=== PATIENT | female | born 1950 | race Caucasian/White ===

== ENCOUNTER → 2018-08-30 | Outpatient (CLI) | payer OTHER ==
[~2018-08-30] MED LIST: AMIODARONE HCL200 MG PO; Apixaban PO; CARVEDILOL12.5 MG PO; COLACE100 M1 PO; COREG12.5 MG PO; Calcitonin,Salmon,Synthetic SC; DIOVAN160 MG PO; FUROSEMIDE40 MG PO; Guaifenesin/Dextromethorphan NG; KLOR-CON M2020 MEQ PO; LASIX40 MG PO; LIPITOR20 MG PO; LORATADINE10 MG PO; PROBIOTIC & AC1 EACH PO; SIMVASTATIN40 MG PO; SINGULAIR10 MG PO; TESSALON PERLE100 MG PO; VITAMIN D1000 UNI1 PO
--- NOTE | 2018-08-30 18:28 | Diagnostic Imaging Report ---
EXAMINATION: CHEST 2 VIEWS INDICATION: Bronchitis COMPARISON: 10/06/2016 FINDINGS: PA and lateral views TUBES and LINES: None. LUNGS: Limited study due to body habitus. Mild bibasilar haziness, likely subsegmental atelectasis. PLEURA: No significant pleural effusion or pneumothorax. HEART AND MEDIASTINUM: The cardiomediastinal silhouette is unremarkable. BONES AND SOFT TISSUES: Generalized demineralization limits evaluation. Exaggerated kyphosis of the thoracic spine. Multilevel advanced degenerative changes. Soft tissues are unremarkable. UPPER ABDOMEN: No free air under the diaphragm. IMPRESSION: Limited study as above. Mild bibasilar subsegmental atelectasis. Underlying/developing infiltrate in the bilateral lower lung quinn cannot be excluded. Signed by: Dr. Luciano Morales MD on 08/30/2018 6:24 PM
== END ==
LOC: RAD 16:20
PROVIDERS: ATTEND Family Medicine
DX: J40 Bronchitis, not specified as acute or chronic (principal)
CPT/HCPCS: 71046

== ENCOUNTER 2018-09-02 18:48 | Inpatient (IN) | payer OTHER, MEDICARE ==
[~2018-09-02] VITALS: Ht 162.6 cm; Wt 133.4 kg
[~2018-09-02 18:48] MED LIST changes: -AMIODARONE HCL200 MG PO; -Apixaban PO; -COLACE100 M1 PO; -COREG12.5 MG PO; -Calcitonin,Salmon,Synthetic SC; -FUROSEMIDE40 MG PO; -Guaifenesin/Dextromethorphan NG; -KLOR-CON M2020 MEQ PO; -LIPITOR20 MG PO; -LORATADINE10 MG PO; -SINGULAIR10 MG PO; -TESSALON PERLE100 MG PO
--- OUTSIDE RECORDS SUMMARY | 2018-09-02 18:51 | XMS REPORT ---
Author Author [facility] Address Unknown Phone Unavailable Care Team Providers Care Assembly Line Machine Operator Name Role Phone AIMEE ROTHMAN Unavailable Unavailable Problems This patient has no known problems. Allergies, Adverse Reactions, Alerts This patient has no known allergies or adverse reactions. Medications This patient has no known medications. Results Test Description Test Time Test Comments Text Results Atomic Results Result Comments CHEST 2 VIEWS 2018-08-30 18:22:00 [facility] [address] [address] Patient Name: ANITA RUSHING MR #: [id number] : 1950 Age/Sex: 68/F Req #: [id number] Adm Physician: Ordered by: AIMEE ROTHMAN MD Report #: [id number] Location: [facility] Room/Bed: Procedure: [id number] DX/CHEST 2 VIEWS Exam Date: Exam Time: REPORT STATUS: Signed EXAMINATION: CHEST 2 VIEWS INDICATION: Bronchitis COMPARIS ON: 10/06/2016 FINDINGS: PA and lateral views TUBES and LINES: None. LUNGS: Limited study due to body habitus. Mild bibasilar haziness, likely subsegmental atelectasis. PLEURA: No significant pleural effusion or pneumothorax. HEART AND MEDIASTINUM: The cardiomediastinal silhouette is unremarkable. BONES AND SOFT TISSUES: Generalized demineralization limits evaluation. Exaggerated kyphosis of the thoracic spine. Multilevel advanced degenerative changes. Soft tissues are unremarkable. UPPER ABDOMEN: No free air under the diaphragm. IMPRESSION: Limited study as above. Mild bibasilar subsegmental atelectasis. Underlying/developing infiltrate in the bilateral lower lung quinn cannot be excluded. Signed by: Dr. Luciano Reid MD on 08/30/2018 6:24 PM Dictated By: LUCIANO REID MD 23 Transcribed By: KELLY on 08/30/181823 COPY TO: AIMEE ROTHMAN MD
[2018-09-02 20:26] LABS: BASOPHILS # (AUTO) 0.1 (0.0-0.1); BASOPHILS % 0.3 % (0.0-1.0); EOSINOPHILS # (AUTO) 0.1 (0.0-0.4); EOSINOPHILS % 0.3 % (0.0-6.0); HEMATOCRIT 44.9 % (34.2-44.1); HEMOGLOBIN 14.7 g/dL (12.0-16.0); LYMPHOCYTES # (AUTO) 1.6 (1.0-3.2); LYMPHOCYTES % 8.6 % (18.0-39.1); MEAN CORPUSCULAR HEMOGLOBIN 28.2 pg (28-32); MEAN CORPUSCULAR HGB CONC 32.7 g/dL (31-35); MONOCYTES # (AUTO) 1.2 (0.2-0.8); MONOCYTES % 6.1 % (4.4-11.3); NEUTROPHILS # (AUTO) 15.8 (2.1-6.9); PLATELET COUNT 256 x10e3/uL (140-360); RED BLOOD COUNT 5.22 x10e6/uL (3.6-5.1); RED CELL DISTRIBUTION WIDTH 13.4 % (11.7-14.4)
[2018-09-02 20:30] LABS: INR 1.03; PARTIAL THROMBOPLASTIN TIME 25.4 seconds (23.8-35.5); PROTHROMBIN TIME 14.4 seconds (11.9-14.5)
[2018-09-02 20:38] LABS: ALANINE AMINOTRANSFERASE 8 IU/L (0-55); ALBUMIN 2.6 g/dL (3.5-5.0); ALBUMIN/GLOBULIN RATIO 0.6 (0.8-2.0); ALKALINE PHOSPHATASE 98 IU/L (40-150); ANION GAP 12.2 mmol/L (8-16); BLOOD UREA NITROGEN 17 mg/dL (7-26); BUN/CREATININE RATIO 19 (6-25); CALCIUM 12.1 mg/dL (8.4-10.2); CARBON DIOXIDE 31 mmol/L (22-29); CHLORIDE 98 mmol/L (98-107); CREATINE KINASE 15 IU/L (29-168); EST GLOMERULAR FILTRATION RATE > 60 ML/MIN (60-); GLUCOSE 166 mg/dL (74-118); MAGNESIUM 1.8 MG/DL (1.3-2.1); POTASSIUM 3.2 mmol/L (3.5-5.1); SODIUM 138 mmol/L (136-145)
[2018-09-02] MEDS ORDERED: IPRATROPIUM BROMIDE 0.02% 2.5 ML NEB NEB ONE (20:45)
[2018-09-02] MEDS ORDERED: LEVALBUTEROL HCL SOLN NEBU 1.25 MG/3 ML NEB INH ONE (20:45)
[2018-09-02] MEDS: CEFTRIAXONE SOD 1 GM VIAL IV SCH (20:57)
[2018-09-02] MEDS: AZITHROMYCIN 500MG/NS 250 ML 250 ML IV SCH (21:01)
--- NOTE | 2018-09-02 21:15 | Diagnostic Imaging Report ---
EXAM: CHEST SINGLE (PORTABLE), AP 1 view INDICATION: Cough, right lower lobe chest pain COMPARISON: None FINDINGS: LINES/TUBES: None LUNGS: New airspace opacity in the right lung base. Low inspiration with vascular congestion. PLEURA: No effusions or pneumothorax. HEART AND MEDIASTINUM: Stable appearance BONES AND SOFT TISSUES: No acute findings. IMPRESSION: New airspace opacity in the right lung base is consistent with pneumonia in the acute setting of cough. Signed by: Dr. Veronique Méndez M.D. on 09/02/2018 9:12 PM
[2018-09-02] MEDS ORDERED: NITROGLYCERIN 2% OINT 1 GM PKT TOP ONE (21:30)
[2018-09-02] MEDS ORDERED: POTASSIUM CHLORIDE 20 MEQ TAB CR PO ONE (21:45)
[2018-09-02 22:39] LABS: CLARITY,URINE SL CLOUDY (CLEAR); COLOR,URINE AMBER (YELLOW); LEUKOCYTE ESTERASE ,URINE TRACE (NEGATIVE); NITRITE,URINE NEGATIVE (NEGATIVE)
[2018-09-02 22:40] LABS: BILIRUBIN,URINE NEGATIVE (NEGATIVE); KETONES,URINE NEGATIVE (NEGATIVE); PROTEIN,URINE DIPSTICK 2+ (NEGATIVE); URINE UROBILINOGEN 1 mg/dL (0.2 - 1)
[2018-09-02 22:41] LABS: BACTERIA,URINE FEW /HPF; EPITHELIAL CELLS,URINE FEW /LPF
[2018-09-02] MEDS ORDERED: SODIUM CHLORIDE 0.9% 1000ML 1,000 ML IV ONE (22:45)
[2018-09-02] MEDS: ALBUTEROL SULF 0.083% NEB SOLN 3 ML NEB NEB SCH (23:00)
[2018-09-03] VITALS (31 sets, daily range): BP systolic 72–156; BP diastolic 64–114
--- NOTE | 2018-09-03 00:50 | NUR ---
MOVED PT OVER TO HOSPITAL BED AT THIS TIME. PT RESTING COMFORTABLY IN BED. HR SUDDENLY UP INTO 180'S. DR HARLEY NOTIFIED. EKG DONE. ABG DONE, PT GIVEN BREATHING TX AND PLACED ON BIPAP, PER DR MENDOZA ORDERS.
[2018-09-03] MEDS ORDERED: DILTIAZEM HCL VIAL 5 ML ONE ×2 (00:54→20:06)
[2018-09-03] MEDS: ALBUTEROL SULF 0.083% NEB SOLN 3 ML NEB NEB SCH ×6 (03:15→23:15)
[2018-09-03] MEDS: IPRATROPIUM BROMIDE 0.02% 2.5 ML NEB NEB SCH ×5 (03:15→23:15)
[2018-09-03] MEDS ORDERED: HYDRALAZINE HCL 20 MG/ML VIAL IV STA (03:17)
[2018-09-03 04:03] LABS: ABG HCO3 36 mmol/L (23-28); ABG PCO2 54 mmHg (41-51); ABG PH 7.43 (7.31-7.41); ABG PO2 70 mmHg (80-105)
[2018-09-03 04:30] LABS: BASOPHILS # (AUTO) 0.1 (0.0-0.1); BASOPHILS % 0.3 % (0.0-1.0); EOSINOPHILS % 0.1 % (0.0-6.0); HEMATOCRIT 44.3 % (34.2-44.1); HEMOGLOBIN 14.3 g/dL (12.0-16.0); LYMPHOCYTES # (AUTO) 1.7 (1.0-3.2); LYMPHOCYTES % 8.6 % (18.0-39.1); MEAN CORPUSCULAR HEMOGLOBIN 28.2 pg (28-32); MEAN CORPUSCULAR HGB CONC 32.3 g/dL (31-35); MEAN CORPUSCULAR VOLUME 87.4 fL (81-99); MONOCYTES # (AUTO) 1.3 (0.2-0.8); MONOCYTES % 6.4 % (4.4-11.3); NEUTROPHILS # (AUTO) 16.4 (2.1-6.9); NEUTROPHILS % 83.4 % (38.7-80.0); PLATELET COUNT 269 x10e3/uL (140-360); RED BLOOD COUNT 5.07 x10e6/uL (3.6-5.1); RED CELL DISTRIBUTION WIDTH 13.3 % (11.7-14.4)
[2018-09-03 04:49] LABS: ALANINE AMINOTRANSFERASE 8 IU/L (0-55); ALBUMIN 2.4 g/dL (3.5-5.0); ALBUMIN/GLOBULIN RATIO 0.6 (0.8-2.0); ALKALINE PHOSPHATASE 97 IU/L (40-150); ANION GAP 11.6 mmol/L (8-16); BLOOD UREA NITROGEN 17 mg/dL (7-26); BUN/CREATININE RATIO 20 (6-25); CALCIUM 12.3 mg/dL (8.4-10.2); CARBON DIOXIDE 32 mmol/L (22-29); CHLORIDE 101 mmol/L (98-107); CREATININE, SERUM 0.83 mg/dL (0.57-1.11); EST GLOMERULAR FILTRATION RATE > 60 ML/MIN (60-); GLUCOSE 141 mg/dL (74-118); POTASSIUM 3.6 mmol/L (3.5-5.1); SODIUM 141 mmol/L (136-145)
[2018-09-03 05:15] LABS: CREATINE KINASE MB 0.5 ng/mL (0-5.0)
[2018-09-03] MEDS: NITROGLYCERIN 2% OINT 1 GM PKT TOP SCH ×4 (05:16→18:00)
[2018-09-03 05:55] LABS: FREE THYROXINE INDEX 3.6983 (1.4-3.8); THYROID STIMULATING HORMONE 0.007 uIU/mL (0.350-4.940)
--- NOTE | 2018-09-03 06:44 | Diagnostic Imaging Report ---
EXAM: CHEST SINGLE (PORTABLE), AP 1 view INDICATION: Pneumonia COMPARISON: AP view of the chest September 02, 2018 FINDINGS: LINES/TUBES: None LUNGS: Increasing opacity in the right lung base. Persistent basilar congestion. PLEURA: Indeterminate for effusion on the right. HEART AND MEDIASTINUM: Possible deviation to the right versus rotation. Stable enlargement. BONES AND SOFT TISSUES: No acute findings. IMPRESSION: Increasing opacity in the right lung base. This could represent worsening pneumonia, collapse of the right lower lobe secondary to mucous plug, and/or developing effusion. Signed by: Dr. Veronique Méndez M.D. on 09/03/2018 6:41 AM
--- NOTE | 2018-09-03 06:55 | NUR ---
ASSUMED CARE AT THIS TIME. PATIENT AWAKE AND ALERT SITTING WITH BIPAP IN PLACE, TOLERATING WELL. RESP EVEN AND UNLABORED. SKIN WARM AND DRY. NO SIGNS OF ACUTE DISTRESS NOTED AT THIS TIME. INSTRUCTED TO NOTIFY NURSE FOR ANY NEEDS/CONCENRS, VERBALIZED UNDERSTANDING. EDUCATED PATIENT ON THE CURRENT PLAN OF CARE, VERBALIZED UNDERSTANDING.
[2018-09-03 07:42] LABS: CHOL/HDL RATIO 3.5 (3.0-3.6)
[2018-09-03] MEDS: VALSARTAN 160 MG TAB PO SCH (08:30)
[2018-09-03] MEDS: CARVEDILOL 12.5 MG TAB PO SCH ×2 (08:30→17:00)
[2018-09-03] MEDS: LORATADINE 10 MG TAB PO SCH (08:30)
[2018-09-03] MEDS: BENZONATATE 100 MG CAP PO SCH ×3 (08:30→21:00)
[2018-09-03] MEDS: CEFTRIAXONE SOD 1 GM VIAL IV SCH ×2 (08:31→21:38)
[2018-09-03] MEDS: AZITHROMYCIN 500MG/NS 250 ML 250 ML IV SCH (08:39)
--- NOTE | 2018-09-03 08:40 | NUR ---
PATIENT AWAKE AND ALERT SITTING IN BED WITH BIPAP, TOLERATING WELL. RESP EVEN AND UNLABORED. SKIN WARM AND DRY. NO SIGNS OF ACUTE DISTRESS NOTED AT THIS TIME. DENIES ANY C/O AT THIS TIME.
[2018-09-03] MEDS ORDERED: FUROSEMIDE 40 MG TAB PO SCH (09:00)
--- NOTE | 2018-09-03 09:15 | NUR ---
PATIENT LAYING IN BED WITH EYES CLOSED WITH BIPAP IN PLACE. RESP EVEN AND UNLABORED. SKIN WARM AND DRY. NO SIGNS OF ACUTE DISTRESS NOTED AT THIS TIME.
--- NOTE | 2018-09-03 09:40 | NUR ---
PATIENT STATES "IT FEELS LIKE THERE IS TOO MUCH AIR COMING IN", REQUESTING TO TAKE BIPAP OFF, NOTIFIED RESPIRATORY. RESPIRATORY AT BEDSIDE, PLACED ON N/C 4L TOLERATING WELL 96%. NO SIGNS OF RESP DISTRESS NOTED AT THIS TIME. INSTRUCTED PATIENT AND FAMILY TO NOTIFY NURSE FOR C/O SOB OR DIFFICULTY BREATHING, VERBALIZED UNDERSTANDING.
--- NOTE | 2018-09-03 10:59 | NUR ---
PATIENT AWAKE AND ALERT SITTING IN BED. BREATHING TREATMENT OF PROGRESS. RESP EVEN AND UNLABORED. SKIN WARM AND DRY. NO SIGNS OF ACUTE DISTRESS NOTED AT THIS TIME FAMILY AT BEDSIDE. DENIES ANY C/O AT THIS TIME.
--- NOTE | 2018-09-03 11:19 | NUR ---
PATIENT REPOSITIONED IN BED FOR COMFORT AND POSITIONED TO RIGHT LATERAL, TOLERATING WELL. NO SIGNS OF ACUTE DISTRESS NOTED AT THIS TIME.
[2018-09-03 11:49] LABS: CREATINE KINASE MB 0.3 ng/mL (0-5.0)
--- NOTE | 2018-09-03 12:02 | NUR ---
Ita goldbergleslie in EDM - 09/03/18 at 1323 by AMCCAGENE SPOKE WITH MADY KINGSLEY RN ON BEHALF OF DR QUINTERO, STATES DR QUINTERO IS CURRENTLY IN A CASE AND HE WILL NOTIFY DR QUINTERO OF CONSULTATION.
[2018-09-03] MEDS: GUAIFENESIN/DEXTROMETHORPHAN LIQD 5 ML UDC NG SCH ×2 (14:48→22:00)
--- NOTE | 2018-09-03 15:00 | NUR ---
Pt and spouse refuse turning and turning wedges
--- NOTE | 2018-09-03 17:10 | NUR ---
Pt and spouse demanded to use BR. Offered bedpan, pt and spouse refused. Offered BSC (could not locate bariatric BSC), pt initially agreed but refused when BSC was brought to BS. Explained to pt and spouse that she is SOB and hypoxic, that she is at high risk for fall, pt stated that she would not fall. Spouse pushed BSC out of way, got pt OOB with rolling walker, bed alarm sounded, unhooked pt from monitor and O2, took Holder catheter, and ambulated pt to BR, refused to keep door open a crack. RT brought extended O2 tubing, pt and spouse refused to allow staff in BR. Pt had difficulty getting back in bed, pt's spouse refused to allow pt to be flat for <5 seconds, stating that she could not be flat. Explained that pt could not be safely raised in bed without Glidesheet, even with multiple person assist, pt stated that she would allow it. Pt pulled up in bed, thanked staff, and stated that she approved of the glidesheet and being flat for a few seconds. RT Juan and KRISTOPHER Calvin witnessed noncompliance of spouse and pt, and that pt's spouse would seek staff in other patients' rooms.
[2018-09-03] MEDS ORDERED: DIGOXIN INJ 0.25 MG/ML 2 ML AMP IV ONE (17:30)
[2018-09-03] MEDS ORDERED: METOPROLOL TARTRATE INJ 1 MG/ML VIAL IV ONE (17:30)
[2018-09-03] MEDS ORDERED: METOPROLOL TARTRATE INJ 1 MG/ML VIAL ONE (17:36)
[2018-09-03] MEDS ORDERED: AMIODARONE HCL 150 MG/100 ML BAG IV ONE (17:45)
[2018-09-03] MEDS ORDERED: AMIODARONE HCL 900 MG in DEXTROSE 5% 500ML 500 ML IV ONE (17:45)
[2018-09-03] MEDS: METOPROLOL TARTRATE INJ 1 MG/ML VIAL IV PRN (19:20)
--- NOTE | 2018-09-03 19:48 | NUR ---
Spouse Blayne called, notified that pt's respiratory failure and atrial fibrillation necessitate ICU transfer and intubation. Spouse states that pt never had a problem before, explained that pneumonia is critical and that pt took cardiac medications. Spouse states that he approves of intubation if necessary, and that he will come to ICU.
[2018-09-03] MEDS ORDERED: AMIODARONE HCL 100 ML IV ONE (19:52)
--- NOTE | 2018-09-03 19:55 | NUR ---
Got Call back form in unit, Notified about ABG results. MD said after patient transfer in ICU give him call back.
[2018-09-03] MEDS ORDERED: DILTIAZEM HCL 5 MG/ML 5 ML VIAL IV STA ×2 (20:00→20:45)
[2018-09-03 20:09] LABS: ABG HCO3 35 mmol/L (23-28); ABG PCO2 53 mmHg (41-51); ABG PH 7.43 (7.31-7.41); ABG PO2 80 mmHg (80-105)
--- NOTE | 2018-09-03 20:35 | NUR ---
Report given to ICU nurse Patricia.
[2018-09-03] MEDS: SIMVASTATIN 40 MG TAB PO SCH (21:00)
[2018-09-03] MEDS: MONTELUKAST SODIUM 10 MG TAB PO SCH (21:00)
--- NOTE | 2018-09-03 21:05 | NUR ---
Patient transferred in ICU with help of KRISTOPHER Ardon and RT Terri at 2105 by bed with continued 60% BIPAP. HR:132,Spo2 99%, RR:12 and BP: 102/85 at this time.Family went with the patient.
--- NOTE | 2018-09-03 21:45 | History and Physical ---
PRIMARY CARE PHYSICIAN: Dr. Barreto. CHIEF COMPLAINT: Shortness of breath and leg swelling. HISTORY OF PRESENT ILLNESS: This is a 68-year-old woman with a history of congestive heart failure, now developing shortness of breath and leg swelling, brought in the emergency room where she was found to have respiratory distress, required BiPAP support in the emergency room. She is admitted for further evaluation and management. Patient unable to provide much history. PAST MEDICAL HISTORY: Congestive heart failure, hypertension, hyperlipidemia, and ambulatory dysfunction with the use of a walker. PAST SURGICAL HISTORY: Unknown. ALLERGIES: PER ELECTRONIC MEDICAL RECORD. FAMILY/SOCIAL HISTORY: Patient denies any alcohol, illicits, or cigarettes. She is .. MEDICATIONS: Per electronic medical record. REVIEW OF SYSTEMS: Unreliable. PHYSICAL EXAMINATION VITAL SIGNS: Reviewed. GENERAL: A tired-appearing woman, resting in bed. HEENT: Anicteric. She has BiPAP mask in place. CARDIOVASCULAR: Normal S1 and S2. LUNGS: She has reduced breath sounds throughout. ABDOMEN: Soft, nontender, and nondistended. EXTREMITIES: She has 1+ leg edema in bilateral lower extremities. SKIN: Dry. PSYCHIATRIC: Flat affect. NEUROLOGIC: Awake. LABS: Reviewed. MEDICATIONS: Reviewed. ASSESSMENT: A 68-year-old woman with; 1. Acute respiratory failure. 2. Severe sepsis. 3. Congestive heart failure, possibly diastolic. 4. Hypokalemia. 5. Hypercalcemia. 6. Urinary tract infection. 7. Right lung pneumonia. 8. Severe obesity, body mass index of 47.2. 9. Hypertension. 10. Hyperlipidemia. PLAN 1. Continue BiPAP support. 2. Antibiotic with azithromycin and ceftriaxone. 3. Antitussive medication Tessalon and guaifenesin DM. 4. Loratadine. 5. Continue on antihypertensive medications. 6. Obtain hemoglobin A1c and lipid panel and screen for diabetes. 7. Low TSH with elevated T4 but normal T3. Patient may have mild hyperparathyroidism. Does not appear to be on Synthroid, but that is unclear at this time. 8. We will use heparin for DVT prophylaxis and Pepcid for GI prophylaxis. DISPOSITION: Monitor closely. Job#: [id number] VAS
--- NOTE | 2018-09-03 21:56 | Diagnostic Imaging Report ---
EXAM: CHEST SINGLE (PORTABLE), AP 1 view INDICATION: Shortness of breath, rapid response COMPARISON: AP view the chest September 03, 2018 FINDINGS: LINES/TUBES: None LUNGS: Persistent opacity in the right lung base. New opacity in the left lung base. PLEURA: Suspected bilateral pleural effusions. HEART AND MEDIASTINUM: Stable enlargement of the cardiomediastinal silhouette. BONES AND SOFT TISSUES: No acute findings. IMPRESSION: Indeterminate bibasilar opacities, new on the left. This could be a combination of pneumonia, aspiration, atelectasis and/or pleural effusions. Signed by: Dr. Veronique Méndez M.D. on 09/03/2018 9:53 PM
[2018-09-04] VITALS (49 sets, daily range): BP systolic 95–179; BP diastolic 41–111
[2018-09-04] MEDS: NITROGLYCERIN 2% OINT 1 GM PKT TOP SCH ×5 (01:22→23:31)
--- NOTE | 2018-09-04 02:25 | Consultation ---
DATE OF CONSULTATION: September 03, 2018 CARDIOLOGY CONSULTATION REASON FOR CONSULTATION: Atrial fibrillation. HISTORY OF PRESENT ILLNESS: Ms. Hi is a 68-year-old lady who is a very-very poor historian. Denies any medical history; however, clearly visually she is not healthy. She comes in; according to chart review, has a history of hypertension, remote history of uterine cancer, hyperlipidemia, melanoma, super morbid obesity, obstructive sleep apnea, chronic Pickwickian obesity hypoventilation syndrome. She came in most recently on August 30, 2018 for bronchitis type symptoms and was initially managed as an outpatient. She came in on September 02 at night with progressively worsening dyspnea. She reports that she has been having a cough for the past 3 weeks, productive of yellowish-greenish sputum and progressively worsening dyspnea and to the point where she is dyspneic at rest. She denies any typical orthopnea; however, is at baseline unable to lay flat. [place] [id number] with a significant left shift and she has had subjective fevers and chills. Imaging revealed right lung base infiltrates concerning for lobar pneumonia. In the hospital, the patient suddenly went into AFib with RVR, heart rate in the 160s and at my visit she is currently in atrial fibrillation. The patient denies any subjective palpitations. Denies knowing any history of prior arrhythmias. PAST MEDICAL HISTORY: Per chart review; 1. Hypertension, essential. 2. Remote history of uterine cancer. 3. Hyperlipidemia. 4. History of melanoma. PAST SURGICAL HISTORY: According to chart review, she has , abdominal hernia and hysterectomy. FAMILY HISTORY: Mother and father both at 83 from heart disease. SOCIAL HISTORY: She is a lifelong nonsmoker. Denies any alcohol or illicit drug use. ALLERGIES: NO KNOWN DRUG ALLERGIES. HOME MEDICATIONS: She denies taking any; however, her ambulatory med list includes; 1. Coreg 25 mg 2 times a day. 2. Lasix 40 mg daily. 3. Zocor 40 mg daily. 4. Diovan 320 mg daily. 5. Vitamin D tablet daily. REVIEW OF SYSTEMS CONSTITUTIONAL: Positive for fever, chills, or malaise. Denies any weight changes. HEENT: Has nasal cough and stuffy nose. No sore throat. Has been having cough. RESPIRATORY: Positive for productive yellowish to greenish sputum and shortness of breath at rest with wheezing. Denies any pleuritic chest pain. CARDIOVASCULAR: Denies any subjective palpitations despite atrial fibrillation. No chest pain, pressure, or heaviness. Does not lay flat. Denies any PND. : Denies any dysuria or pyuria or changes in urinary frequency. MUSCULOSKELETAL: Positive for chronic back pain, knee pain, has quite difficulty ambulating at baseline due to habitus. NEUROLOGIC: Denies any focal weakness, numbness, tingling, seizures, headache, history of TIA or stroke. OTHER: The remainder of the review of systems is negative, otherwise mentioned. PHYSICAL EXAMINATION VITALS: Height of 64 inches, weight of 275 pounds. BMI is 47.2. Temperature, T-max of 100.3, currently 98.0; pulse of 168, respiratory rate of 30 on BiPAP machine, blood pressure 114/95, and O2 sat 98% on BiPAP which was previously 88% on nasal cannula. GENERAL: This is a super morbidly obese lady who is in [id number] respiratory distress. HEENT: Extraocular movements are intact. Pupils are equal, round and reactive to light. Oropharynx is covered with BiPAP mask. NECK: No elevation of jugular venous pulsation. Obese neck. Limited exam due to habitus. No carotid bruits. CARDIOVASCULAR: Irregularly irregular rate and rhythm. Normal S1 and S2, 1/6 murmur at the left lower sternal border. LUNGS: Show coarse rhonchi, coarse breath sounds throughout lung quinn, crackles at the right base. Poor airflow throughout lung quinn. ABDOMEN: Soft, morbidly obese with large pannus. Unable to assess for hepatosplenomegaly. BACK: No costovertebral angle tenderness. EXTREMITIES: Warm with chronic venous stasis changes and 1 to 2+ edema. NEUROLOGIC: Cranial nerves II through XII are intact and she moves all 4 extremities, limited cooperation for remainder of exam. LABS: White count 19.6, hemoglobin 14.3, hematocrit 44.3, platelets of 269. Sodium is 141, potassium 3.6, chloride 101, bicarb 32, BUN 17, creatinine 0.83, glucose of 141, A1c was 5.1%. Lactate level on admission was 10.3, calcium of 12.3, AST 11, ALT 8, alk phos of 97, total protein of 6.4, albumen of 2.4, BNP is 149. TSH is 0.007. INR is 1.03. UA shows No white cells. ABG shows pH of 7.43, pCO2 of 54, and pO2 of 70. Chest x-ray revealed right lung base opacity concerning for pneumonia. EKG reveals atrial fibrillation, left ventricular response, and diffuse subendocardial ischemia due to RVR. DIAGNOSES 1. Acute hypoxic and hypercapnic respiratory failure, currently on salvage BiPAP therapy. 2. Severe lobar pneumonia. 3. Atrial fibrillation with rapid ventricular response in the setting of respiratory distress and likely high likelihood for atrial arrhythmias in light of her comorbidities. 4. Super morbid obesity, on CPAP at night. 5. Hypertension, essential. 6. Hypercholesterolemia. 7. Medical regimen suggestive of perhaps diastolic heart failure, but does not seem to be in decompensated heart failure at this time. PLAN/RECOMMENDATIONS 1. From a cardiovascular standpoint, we will go ahead and start her on amiodarone drip as she has already received digoxin and IV beta-ted therapy. 2. In light of her respiratory status, discussion with nursing, the patient is not safe or cooperative enough to take p.o. medications at the present time. 3. We will give IV metoprolol p.r.n. q.2 hours as an additional supplement. 4. IV antibiotics per primary team. 5. Close telemetry monitoring. 6. We will continue to monitor this patient while she is here. Job#: [id number] GAU MTDD
--- NOTE | 2018-09-04 03:00 | NUR ---
Amiodarone setting changed to .5mg(16.7ml/per hour) per protocol
[2018-09-04] MEDS: ALBUTEROL SULF 0.083% NEB SOLN 3 ML NEB NEB SCH ×6 (03:05→23:05)
--- NOTE | 2018-09-04 03:32 | Consultation ---
DATE OF CONSULTATION: September 03, 2018 CLINICAL UPDATE NOTE Patient had a rapid call due to worsening respiratory distress and elevation in heart rates with AFib, RVR going up to 170s. Overall, we went ahead and ordered a stat ABG and gave her further amiodarone bolus as well as Cardizem IV. She seemed to have settled down. When I had notified the changes to Dr. Kimbrough in regards to stat ABG, which showed pH 7.43, pCO2 in the 50s, and pO2 in the 80s, we made arrangements to move her to the ICU for closer observation and monitoring with low threshold for intubation. Her blood pressure has subsequently improved and at one point it was as low as 80s over 60s, but now is up to 90s over 79 and currently breathing at 20 times a minute with heart rate in the 110s range. Total time spent with the patient including re-assessment so forth now is total over 90 minutes. We will continue attempted rhythm strategy with amiodarone and we will need to supplement with p.r.n. rate-control medications intravenously as she is currently capable of swallowing. We also needed to have a close respiratory monitoring and is currently on salvage BiPAP therapy and may need intubation if neuro status deteriorates or ABGs worsen. Patient might be in critical condition with high likelihood of respiratory failure due to her underlying pneumonia and clinical condition. Job#: [id number] RICCO
[2018-09-04 04:57] LABS: BASOPHILS # (AUTO) 0.1 (0.0-0.1); BASOPHILS % 0.3 % (0.0-1.0); EOSINOPHILS # (AUTO) 0.1 (0.0-0.4); EOSINOPHILS % 0.4 % (0.0-6.0); HEMATOCRIT 37.8 % (34.2-44.1); LYMPHOCYTES # (AUTO) 1.3 (1.0-3.2); LYMPHOCYTES % 7.6 % (18.0-39.1); MEAN CORPUSCULAR HEMOGLOBIN 28.3 pg (28-32); MEAN CORPUSCULAR HGB CONC 31.7 g/dL (31-35); MEAN CORPUSCULAR VOLUME 89.2 fL (81-99); MONOCYTES # (AUTO) 1.1 (0.2-0.8); MONOCYTES % 6.3 % (4.4-11.3); NEUTROPHILS # (AUTO) 14.7 (2.1-6.9); NEUTROPHILS % 84.5 % (38.7-80.0); PLATELET COUNT 289 x10e3/uL (140-360); RED BLOOD COUNT 4.24 x10e6/uL (3.6-5.1); RED CELL DISTRIBUTION WIDTH 13.3 % (11.7-14.4)
[2018-09-04 05:25] LABS: ALANINE AMINOTRANSFERASE 7 IU/L (0-55); ALBUMIN 1.9 g/dL (3.5-5.0); ALBUMIN/GLOBULIN RATIO 0.5 (0.8-2.0); ALKALINE PHOSPHATASE 93 IU/L (40-150); ANION GAP 10.3 mmol/L (8-16); BLOOD UREA NITROGEN 23 mg/dL (7-26); BUN/CREATININE RATIO 26 (6-25); CALCIUM 12.2 mg/dL (8.4-10.2); CARBON DIOXIDE 34 mmol/L (22-29); CHLORIDE 101 mmol/L (98-107); CHOLESTEROL 115 MD/DL (0-199); EST GLOMERULAR FILTRATION RATE > 60 ML/MIN (60-); GLUCOSE 116 mg/dL (74-118); MAGNESIUM 1.9 MG/DL (1.3-2.1); POTASSIUM 3.3 mmol/L (3.5-5.1); SODIUM 142 mmol/L (136-145)
[2018-09-04] MEDS: GUAIFENESIN/DEXTROMETHORPHAN LIQD 5 ML UDC NG SCH ×3 (05:58→20:33)
[2018-09-04 06:17] LABS: CHOL/HDL RATIO 3.7 (3.0-3.6); HDL CHOLESTEROL 30 MG/DL (40-60); LDL CHOLESTEROL 69 MG/DL (60-130); TRIGLYCERIDES 64 MG/DL (0-149)
[2018-09-04 06:36] LABS: INR 0.99
[2018-09-04 06:43] LABS: THYROID STIMULATING HORMONE 0.005 uIU/mL (0.350-4.940)
[2018-09-04] MEDS: IPRATROPIUM BROMIDE 0.02% 2.5 ML NEB NEB SCH ×3 (07:35→19:10)
[2018-09-04] MEDS: CEFTRIAXONE SOD 1 GM VIAL IV SCH (08:00)
[2018-09-04] MEDS: VALSARTAN 160 MG TAB PO SCH (09:00)
[2018-09-04] MEDS: BENZONATATE 100 MG CAP PO SCH ×3 (09:00→20:41)
[2018-09-04] MEDS: CARVEDILOL 12.5 MG TAB PO SCH ×2 (09:00→17:00)
[2018-09-04] MEDS: AZITHROMYCIN 500MG/NS 250 ML 250 ML IV SCH (09:00)
[2018-09-04] MEDS: LORATADINE 10 MG TAB PO SCH (09:00)
[2018-09-04] MEDS ORDERED: SODIUM CHLORIDE 0.9% 250ML 250 ML ONE (10:43)
[2018-09-04] MEDS ORDERED: POTASSIUM CHLORIDE 20 MEQ TAB CR PO NR ×2 (11:45→18:00)
--- NOTE | 2018-09-04 12:51 | Consultation ---
DATE OF CONSULTATION: September 04, 2018 PULMONARY CRITICAL CARE CONSULTATION REASON FOR CONSULTATION: Shortness of breath and respiratory failure. HPI: Ms. Hi is a 68-year-old female. She presented into the emergency room with increasing cough and shortness of breath. Patient was admitted under Dr. Sorenson' service for this problem. She was on BiPAP in the emergency room and was transferred to [facility]. After she was transferred [facility], she continued on BiPAP. She became increasingly short of breath and tachypneic. Blood gas was done, which showed ABG, pH of 7.43, pCO2 of 53, pO2 of 80. Patient was transferred to ICU and she did well. She was in atrial fibrillation with rapid ventricular response. Amiodarone was given and she converted back to normal. She is currently complaining of cough and shortness of breath, but much better than last night. Her chest x-ray showing right-sided new right lower lobe infiltrate and increased hilar congestion as well. She has atelectasis on the chest x-ray as well. REVIEW OF SYSTEMS GENERAL: Denies any fever or chills. HEAD: Denies any head trauma. ENT: Denies any earache. CVS: Denies any chest pain. RESPIRATORY: Shortness of breath. GI: Denies any nausea or vomiting. MUSCULOSKELETAL: Denies any arthralgias or myalgias. NEUROLOGIC: Denies any focal weakness. The rest of the review systems are negative except as in HPI. PAST MEDICAL HISTORY: Hypertension, obesity, history of heart failure possibly diastolic. PAST SURGICAL HISTORY: Not known. FAMILY AND SOCIAL HISTORY: She does not smoke, does not drink, lives with her . She is . PHYSICAL EXAMINATION VITALS: Temperature 98.3, pulse of 86, blood pressure 159/78, respiratory rate of 20, O2 sat 97% on 3 liters. HEENT: Head is atraumatic normocephalic. NECK: Supple. CHEST: Crackles bilaterally. HEART: S1, S2 audible. No murmurs, gallops, or rub. ABDOMEN: Soft, nontender. EXTREMITIES: Bilateral peal edema. NEUROLOGIC: She is awake and alert, following commands. Responding to questions appropriately. LABS: Chemistry; sodium 142, potassium 3.3, BUN 23, creatinine 0.9. White count of 17,000. Blood gas reviewed. CHEST X-RAY: I have reviewed all the images. Patient had a chest x-ray in the a.m. of , which was completely normal with no infiltrate. The x-ray on the is showing dense right lower lobe bibasilar infiltrates, possible atelectasis and congestion as well. ASSESSMENT/PLAN: Ms. Hi is a 68-year-old female. She presented with worsening shortness of breath, cough, and her phlegm is darkish green colored, which she has been coughing up in front of me. CURRENT PROBLEMS 1. Pneumonia. On the , the patient and no infiltrate. Leukocytosis is not reduced. I will change the antibiotic to IV Zosyn along with the azithromycin and discontinue Rocephin for broader coverage. 2. High likelihood of diastolic heart failure. Patient's echo reading is pending. Increasing congestion and chest x-ray is also suggestive of fluid overload. Patient is on Lasix 40 mg p.o. I will change it to IV daily and follow the BMP closely. 3. High likelihood of obstructive sleep apnea. Patient reports that she had a sleep study and she was told that she does not have sleep apnea. I am unsure when this study was done; however, we will use the BiPAP as needed in hours of sleep and she will need outpatient followup for sleep study. 4. In 2009, patient was seen with Dr. Mahajan here in the hospital and his note suggest that patient probably has history of asthma as well. Continue the patient on nebulizer treatment as ordered. Hold off on the steroids for now. 5. I will send off sputum cultures for Gram-stain and culture. 6. Acute hypoxic respiratory failure. Mild hypercapnia on ABG. We will continue the patient on oxygen as needed. 7. Morbid obesity. Critical care time spent 50 minutes. Thank you for this consult. Job#: [id number] YODIT
[2018-09-04] MEDS: PIPER-TAZ 3.375 GM 50 ML IV SCH ×2 (14:00→20:42)
--- NOTE | 2018-09-04 14:06 | NUR ---
IM- Progress Note O/N: A.fib with RVR; REVIEW OF SYSTEMS: Unreliable. PHYSICAL EXAMINATION VITAL SIGNS: Reviewed. GENERAL: A tired-appearing woman, resting in bed. HEENT: Anicteric. She has BiPAP mask in place. CARDIOVASCULAR: Normal S1 and S2. LUNGS: She has reduced breath sounds throughout. ABDOMEN: Soft, nontender, and nondistended. EXTREMITIES: She has 1+ leg edema in bilateral lower extremities. SKIN: Dry. PSYCHIATRIC: Flat affect. NEUROLOGIC: Awake. LABS: Reviewed. MEDICATIONS: Reviewed. ASSESSMENT: A 68-year-old woman with; 1. Acute respiratory failure. 2. Severe sepsis. 3. Congestive heart failure, possibly diastolic. 4. Hypokalemia. 5. Hypercalcemia. 6. Urinary tract infection. 7. Right lung pneumonia. 8. Severe obesity, body mass index of 47.2. 9. Hypertension. 10. Hyperlipidemia. PLAN 1. Continue BiPAP support. 2. Antibiotic with azithromycin and ceftriaxone. 3. Antitussive medication Tessalon and guaifenesin DM. 4. Loratadine. 5. Continue on antihypertensive medications. 6. Obtain hemoglobin A1c and lipid panel and screen for diabetes. 7. Low TSH with elevated T4 but normal T3. Patient may have mild hyperparathyroidism. Does not appear to be on Synthroid, but that is unclear at this time. 8. We will use heparin for DVT prophylaxis and Pepcid for GI prophylaxis. DISPOSITION: Monitor closely. 09/04 A.fib with RVR overnight; Possibly sleep apnea; HypoKalemia- repalce; Hypercalcemia- check intact PTH. Move to IMCU. cct>35mins. Salazar Sorenson MD, PhD.
--- NOTE | 2018-09-04 17:02 | Diagnostic Imaging Report ---
EXAMINATION: CHEST XRAY LINE PLACEMENT INDICATION: ^CK PICC LINE PLACEMENT COMPARISON: 10/24/2016 FINDINGS: AP view TUBES and LINES: Left PICC line in place with tip overlying SVC. LUNGS: Limited by body habitus. Bilateral lower lobe hazy opacities, right greater than left. PLEURA: No pneumothorax. HEART AND MEDIASTINUM: The cardiomediastinal silhouette is enlarged on this AP view. BONES AND SOFT TISSUES: No acute osseous lesion. Soft tissues are unremarkable. UPPER ABDOMEN: No free air under the diaphragm. IMPRESSION: Limited as above. Left PICC line in place with tip overlying SVC. No visible pneumothorax. Bilateral lower lobe hazy opacities, representing atelectasis, small effusions, or pneumonia. Signed by: Dr. Luciano Morales MD on 09/04/2018 4:58 PM
[2018-09-04] MEDS: SIMVASTATIN 40 MG TAB PO SCH (20:33)
[2018-09-04] MEDS: MONTELUKAST SODIUM 10 MG TAB PO SCH (20:41)
[2018-09-05] VITALS (7 sets, daily range): BP systolic 90–141; BP diastolic 51–90
[2018-09-05] MEDS: ALBUTEROL SULF 0.083% NEB SOLN 3 ML NEB NEB SCH ×5 (02:05→19:45)
[2018-09-05] MEDS: IPRATROPIUM BROMIDE 0.02% 2.5 ML NEB NEB SCH ×4 (02:05→19:45)
[2018-09-05] MEDS: PIPER-TAZ 3.375 GM 50 ML IV SCH ×3 (05:49→21:00)
[2018-09-05] MEDS: NITROGLYCERIN 2% OINT 1 GM PKT TOP SCH ×4 (05:50→23:45)
[2018-09-05] MEDS: GUAIFENESIN/DEXTROMETHORPHAN LIQD 5 ML UDC NG SCH ×3 (05:50→21:00)
--- NOTE | 2018-09-05 07:15 | NUR ---
Patient received awake, alert and Ox3 and sitting in chair at bedside and tolerating well. Respirations are even and unlabored. Denies any pain or discomfort.
--- NOTE | 2018-09-05 07:30 | NUR ---
Patient assisted to bathroom with her own personal walker and tolerated well.
--- NOTE | 2018-09-05 08:00 | NUR ---
Patient had very small brown colored formed stool. She required more assistance upon standing and used her walker to ambulate without any difficulty.
[2018-09-05] MEDS: FUROSEMIDE INJ 10 MG/ML 4 ML VIAL IV SCH (09:00)
[2018-09-05] MEDS: AZITHROMYCIN 500MG/NS 250 ML 250 ML IV SCH (09:00)
[2018-09-05] MEDS: BENZONATATE 100 MG CAP PO SCH ×3 (09:00→20:35)
[2018-09-05] MEDS: VALSARTAN 160 MG TAB PO SCH (09:00)
[2018-09-05] MEDS: LORATADINE 10 MG TAB PO SCH (09:00)
[2018-09-05] MEDS: CARVEDILOL 12.5 MG TAB PO SCH ×2 (09:00→17:12)
--- NOTE | 2018-09-05 09:30 | NUR ---
at bedside. He was informed that patient will possibly be moving today to IMCU.
[2018-09-05 10:16] LABS: BASOPHILS # (AUTO) 0.1 (0.0-0.1); BASOPHILS % 0.3 % (0.0-1.0); EOSINOPHILS # (AUTO) 0.2 (0.0-0.4); EOSINOPHILS % 1.2 % (0.0-6.0); HEMATOCRIT 36.7 % (34.2-44.1); HEMOGLOBIN 11.9 g/dL (12.0-16.0); LYMPHOCYTES # (AUTO) 1.3 (1.0-3.2); LYMPHOCYTES % 8.7 % (18.0-39.1); MEAN CORPUSCULAR HEMOGLOBIN 28.7 pg (28-32); MEAN CORPUSCULAR HGB CONC 32.4 g/dL (31-35); MEAN CORPUSCULAR VOLUME 88.6 fL (81-99); MONOCYTES # (AUTO) 1.4 (0.2-0.8); MONOCYTES % 9.2 % (4.4-11.3); NEUTROPHILS % 79.3 % (38.7-80.0); PLATELET COUNT 287 x10e3/uL (140-360); RED BLOOD COUNT 4.14 x10e6/uL (3.6-5.1); RED CELL DISTRIBUTION WIDTH 13.1 % (11.7-14.4)
[2018-09-05 10:22] LABS: ANION GAP 9.4 mmol/L (8-16); CALCIUM 12.3 mg/dL (8.4-10.2); CREATININE, SERUM 1.01 mg/dL (0.57-1.11); POTASSIUM 3.4 mmol/L (3.5-5.1)
--- NOTE | 2018-09-05 10:30 | NUR ---
Dr. Langley here to see patient
--- NOTE | 2018-09-05 11:00 | NUR ---
Dr. Mahajan here to see patient.
[2018-09-05] MEDS: POTASSIUM CHLORIDE 20 MEQ TAB CR PO SCH ×2 (11:26→17:13)
[2018-09-05] MEDS: AMIODARONE HCL 200 MG TAB PO SCH ×2 (11:26→17:12)
[2018-09-05] MEDS ORDERED: MAGNESIUM HYDROXIDE 30 ML UDC PO PRN (11:30)
--- NOTE | 2018-09-05 12:03 | Diagnostic Imaging Report ---
EXAMINATION: CHEST SINGLE (PORTABLE) INDICATION: Hypoxia. Hypokalemia. COMPARISON: 09/03/2018. FINDINGS: AP view TUBES and LINES: Left PICC line in place with tip not well-visualized, apparently at the left brachiocephalic vein/SVC junction.. LUNGS: Prominence of the pulmonary vasculature with redistribution bilaterally, congestion. Possible bibasilar subsegmental atelectasis. Consolidation in the lower right lower lobe not excluded. PLEURA: Bilateral pleural effusions, right larger than left. No pneumothorax. HEART AND MEDIASTINUM: The cardiac silhouette is partially visualized, however, enlarged. BONES AND SOFT TISSUES: No acute osseous lesion. Soft tissues are unremarkable. UPPER ABDOMEN: No free air under the diaphragm. IMPRESSION: 1. Bilateral pulmonary venous congestion. 2. Bilateral pleural effusions, right greater than left. Bibasilar subsegmental atelectasis. Signed by: Dr. Jaon Christianson M.D. on 09/05/2018 12:00 PM
--- NOTE | 2018-09-05 12:30 | NUR ---
Report called to Harriet Jasso RN and patient will be moving to [facility]-Room# 188.
--- NOTE | 2018-09-05 12:55 | NUR ---
Patient transferred to [facility]-[id number] via her own bed and hooked up to monitor. Denies any pain or discomfort. Respirations are even and unlabored and on O2 at 2 liters per nasal cannula and tolerating well. Bipap machine at bedside. Personal walker at bedside. Bed Alarm on. Call chi in patient's hand.
--- NOTE | 2018-09-05 13:20 | NUR ---
Spouse called at this time to inform of new room assignment to [facility] 188.
[2018-09-05] MEDS ORDERED: SODIUM CHLORIDE 0.9% 250ML 250 ML ONE (13:46)
--- NOTE | 2018-09-05 14:38 | NUR ---
Caught patient attempting to exit bed; with help of son, pt put back to bed. This patient is a minimum of 3 person assist. Bed alarm on.
[2018-09-05] MEDS: DOCUSATE SODIUM 100 MG CAP PO SCH (17:12)
[2018-09-05] MEDS: MONTELUKAST SODIUM 10 MG TAB PO SCH (20:35)
[2018-09-05] MEDS: SIMVASTATIN 40 MG TAB PO SCH (20:35)
[2018-09-06] VITALS (8 sets, daily range): BP systolic 102–157; BP diastolic 56–93
[2018-09-06] MEDS: IPRATROPIUM BROMIDE 0.02% 2.5 ML NEB NEB SCH ×4 (00:30→19:45)
[2018-09-06] MEDS: ALBUTEROL SULF 0.083% NEB SOLN 3 ML NEB NEB SCH ×6 (00:30→19:45)
[2018-09-06] MEDS: GUAIFENESIN/DEXTROMETHORPHAN LIQD 5 ML UDC NG SCH ×3 (05:50→22:57)
[2018-09-06] MEDS: PIPER-TAZ 3.375 GM 50 ML IV SCH ×3 (05:50→22:35)
[2018-09-06] MEDS: NITROGLYCERIN 2% OINT 1 GM PKT TOP SCH ×4 (05:50→23:44)
[2018-09-06] MEDS: CARVEDILOL 12.5 MG TAB PO SCH ×2 (10:10→18:14)
[2018-09-06] MEDS: VALSARTAN 160 MG TAB PO SCH (10:10)
[2018-09-06] MEDS: FUROSEMIDE INJ 10 MG/ML 4 ML VIAL IV SCH (10:13)
[2018-09-06] MEDS: AZITHROMYCIN 500MG/NS 250 ML 250 ML IV SCH (10:13)
[2018-09-06] MEDS: BENZONATATE 100 MG CAP PO SCH ×3 (10:13→20:27)
[2018-09-06] MEDS: AMIODARONE HCL 200 MG TAB PO SCH ×2 (10:13→18:14)
[2018-09-06] MEDS: DOCUSATE SODIUM 100 MG CAP PO SCH ×2 (10:13→17:00)
[2018-09-06] MEDS: LORATADINE 10 MG TAB PO SCH (10:13)
--- NOTE | 2018-09-06 11:26 | NUR ---
THIS 68 YO FEMALE AAOX3 ADMITTED FOR HYPOKALEMIA, HYPOXIA & PNEMONIA HAS WHAT APPEARS TO BE A NEWLY HEALED ABRASION TO DISTAL MONS PUBIS. SHE IS MORBIDLY OBESE WITH A LARGE ABDOMINAL AREA INCLUDING MONS PUBIS WHICH IS SEEN TO TOUCH THE SURFACE OF BED & CHAIR WHEN SITTING. EDUCATED PATIENT ON KEEPING ABDOMINAL FOLDS DRY & CLEAN TO PREVENT SKIN BREAKDOWN & ATTEMPTING TO NOT SHEAR NEWLY HEALED AREA ACROSS SURFACE, NEEDING TO LIFT INSTEAD OF SLIDING. PATIENT VERBALIZED UNDERSTANDING. LABS: WBC 15.8 ALB 1.9 RECOMMENDATION: ALLEVYN FOAM TO NEWLY HEALED AREA OF MONS PUBIS, OKAY TO CHANGE WEEKLY KEEP PERINEUM CLEAN AND DRY DAILY HEEL PROTECTORS WHILE IN BED CONTINUE WITH ALTERNATING LOW AIR LOSS MATTRESS TURN EVERY 2 HOURS WHILE IN BED THANK YOU FOR THIS CONSULTATION. Addendum: 09/06/18 at 1135 by Eva Reid RN Amended: Links added.
[2018-09-06 15:21] LABS: CALCIUM 12.6 mg/dL (8.4-10.2); CREATININE, SERUM 1.04 mg/dL (0.57-1.11)
--- NOTE | 2018-09-06 15:47 | NUR ---
Nutrition Screen Note RD Recommendation for Physician: -Continue cardiac diet as medically appropriate -Encourage PO and hydration -If PO < 50%, consider Ensure compact Plan of Care: RD following, monitoring for tolerance and adequacy Nutrition reason for involvement: RN consult- no reason stated Primary Diagnose(s): Acute respiratory failure, Afib w RVR, PNA PMH: Congestive heart failure, hypertension, hyperlipidemia, and ambulatory dysfunction with the use of a walker, obesity Ht: 64in Wt: 294lb 09/06 BMI: 50.5kg/m2 IBW: 120lb RD Assessment: (09/06) Chart reviewed. Labs and meds reviewed. 68yo morbidly obese F, who is admitted for SOB and leg swelling. Pt appears sleepy during my visit. Pt reports eating ok today. No complain of N/V/D/C or abdominal pain at this time. LBM 09/06. Pt denies any chewing or swallowing difficulty. 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 Pt is currently on IV abx, wound care, and fluid restriction. Per wound care notes, pt has newly healed abrasion to distal mons pubis. RD do not think pt needs additional protein for wound recovery at this time. However, RD rec Ensure compact if PO < 50%. Diet education is not appropriate as pt appears to be sleepy. Continue to monitor and follow. Current Diet: Cardiac diet Malnutrition Evaluation (09/06/18) The patient does not meet criteria for a specified degree of malnutrition at this time. Will re-evaluate at follow-up as appropriate. Diet Education Needs Assessment: Diet education indicated, pt is not appropriate at this time. Nutrition Care Level: low Signed: Eloina Loya, , RD, LD
--- NOTE | 2018-09-06 18:27 | NUR ---
patient was transferring from bed to chair with nurse and son supporting patient on each side when left knee "gave out" and patient lowered to sitting position. required 5 staff members to assist patient to chair. patient stable. denies pain. vitals are stable.
[2018-09-06] MEDS: SIMVASTATIN 40 MG TAB PO SCH (20:27)
[2018-09-06] MEDS: MONTELUKAST SODIUM 10 MG TAB PO SCH (20:27)
--- NOTE | 2018-09-06 21:53 | NUR ---
IM- Progress Note O/N: A.fib with RVR; REVIEW OF SYSTEMS: Unreliable. PHYSICAL EXAMINATION VITAL SIGNS: Reviewed. GENERAL: A tired-appearing woman, resting in bed. HEENT: Anicteric. She has BiPAP mask in place. CARDIOVASCULAR: Normal S1 and S2. LUNGS: She has reduced breath sounds throughout. ABDOMEN: Soft, nontender, and nondistended. EXTREMITIES: She has 1+ leg edema in bilateral lower extremities. SKIN: Dry. PSYCHIATRIC: Flat affect. NEUROLOGIC: Awake. LABS: Reviewed. MEDICATIONS: Reviewed. ASSESSMENT: A 68-year-old woman with; 1. Acute respiratory failure. 2. Severe sepsis. 3. Congestive heart failure, possibly diastolic. 4. Hypokalemia. 5. Hypercalcemia. 6. Urinary tract infection. 7. Right lung pneumonia. 8. Severe obesity, body mass index of 47.2. 9. Hypertension. 10. Hyperlipidemia. PLAN 1. Continue BiPAP support. 2. Antibiotic with azithromycin and ceftriaxone. 3. Antitussive medication Tessalon and guaifenesin DM. 4. Loratadine. 5. Continue on antihypertensive medications. 6. Obtain hemoglobin A1c and lipid panel and screen for diabetes. 7. Low TSH with elevated T4 but normal T3. Patient may have mild hyperparathyroidism. Does not appear to be on Synthroid, but that is unclear at this time. 8. We will use heparin for DVT prophylaxis and Pepcid for GI prophylaxis. DISPOSITION: Monitor closely. 09/04 A.fib with RVR overnight; Possibly sleep apnea; HypoKalemia- repalce; Hypercalcemia- check intact PTH. Move to IMCU. cct>35mins. 09/05 Improving WBC; sputum positive with yeast; cont care; ambulate 09/06 SNF eval; check labs; Salazar Sorenson MD, PhD.
[2018-09-06 22:29] LABS: BASOPHILS # (AUTO) 0.1 (0.0-0.1); BASOPHILS % 0.5 % (0.0-1.0); EOSINOPHILS # (AUTO) 0.3 (0.0-0.4); EOSINOPHILS % 2.1 % (0.0-6.0); HEMATOCRIT 38.3 % (34.2-44.1); HEMOGLOBIN 11.9 g/dL (12.0-16.0); LYMPHOCYTES # (AUTO) 1.4 (1.0-3.2); LYMPHOCYTES % 9.5 % (18.0-39.1); MEAN CORPUSCULAR HEMOGLOBIN 28.1 pg (28-32); MEAN CORPUSCULAR HGB CONC 31.1 g/dL (31-35); MEAN CORPUSCULAR VOLUME 90.5 fL (81-99); MONOCYTES # (AUTO) 1.1 (0.2-0.8); MONOCYTES % 7.3 % (4.4-11.3); NEUTROPHILS # (AUTO) 11.4 (2.1-6.9); NEUTROPHILS % 78.9 % (38.7-80.0); PLATELET COUNT 222 x10e3/uL (140-360); RED BLOOD COUNT 4.23 x10e6/uL (3.6-5.1); RED CELL DISTRIBUTION WIDTH 13.2 % (11.7-14.4)
[2018-09-07] MEDS: IPRATROPIUM BROMIDE 0.02% 2.5 ML NEB NEB SCH ×4 (00:15→19:05)
[2018-09-07] MEDS: ALBUTEROL SULF 0.083% NEB SOLN 3 ML NEB NEB SCH ×7 (00:15→23:20)
[2018-09-07 01:20] VITALS: BP 131/69
--- NOTE | 2018-09-07 01:49 | NUR ---
patient seemed confused, she striped herself down, naked on the recliner all the telemetry lead on the floor. cleaned patient, vitals checked,BIPAP is put on, will keep monitoring closely.
[2018-09-07 04:10] VITALS: BP 124/70
[2018-09-07 06:05] LABS: BASOPHILS # (AUTO) 0.1 (0.0-0.1); BASOPHILS % 0.7 % (0.0-1.0); EOSINOPHILS # (AUTO) 0.3 (0.0-0.4); EOSINOPHILS % 2.3 % (0.0-6.0); HEMATOCRIT 34.8 % (34.2-44.1); HEMOGLOBIN 10.8 g/dL (12.0-16.0); LYMPHOCYTES # (AUTO) 1.5 (1.0-3.2); LYMPHOCYTES % 10.7 % (18.0-39.1); MEAN CORPUSCULAR HEMOGLOBIN 28.4 pg (28-32); MEAN CORPUSCULAR VOLUME 91.6 fL (81-99); NEUTROPHILS # (AUTO) 10.6 (2.1-6.9); NEUTROPHILS % 77.2 % (38.7-80.0); PLATELET COUNT 249 x10e3/uL (140-360); RED CELL DISTRIBUTION WIDTH 13.2 % (11.7-14.4)
[2018-09-07] MEDS: NITROGLYCERIN 2% OINT 1 GM PKT TOP SCH ×4 (06:07→23:41)
[2018-09-07] MEDS: PIPER-TAZ 3.375 GM 50 ML IV SCH ×3 (06:07→21:24)
[2018-09-07] MEDS: GUAIFENESIN/DEXTROMETHORPHAN LIQD 5 ML UDC NG SCH ×3 (06:21→21:24)
[2018-09-07 06:42] LABS: ALBUMIN 1.8 g/dL (3.5-5.0); ANION GAP 8.9 mmol/L (8-16); CALCIUM 12.4 mg/dL (8.4-10.2); CREATININE, SERUM 0.96 mg/dL (0.57-1.11); POTASSIUM 3.9 mmol/L (3.5-5.1)
[2018-09-07 06:54] LABS: ALBUMIN/GLOBULIN RATIO 0.5 (0.8-2.0)
--- NOTE | 2018-09-07 07:00 | NUR ---
BEDSIDE REPORT RECVD. ASSESSMENT COMPLETED AND RECORDED. PT IN CHAIR, REFUSING TO RETURN TO BED. INSTRUCTED ON POC OF FLUID RESTRICTION, APPEARS TO BE NON COMPLIANT WITH CURRENT RECOMMENDATIONS. DENIES PAIN. NO FAMILY AT BEDSIDE.
[2018-09-07] MEDS: FUROSEMIDE INJ 10 MG/ML 4 ML VIAL IV SCH (09:15)
[2018-09-07] MEDS: AZITHROMYCIN 500MG/NS 250 ML 250 ML IV SCH (09:15)
[2018-09-07] MEDS: LORATADINE 10 MG TAB PO SCH (09:15)
[2018-09-07] MEDS: DOCUSATE SODIUM 100 MG CAP PO SCH ×2 (09:15→17:08)
[2018-09-07] MEDS: BENZONATATE 100 MG CAP PO SCH ×3 (09:16→20:22)
[2018-09-07] MEDS: CARVEDILOL 12.5 MG TAB PO SCH ×2 (09:16→17:08)
[2018-09-07] MEDS: VALSARTAN 160 MG TAB PO SCH (09:16)
--- NOTE | 2018-09-07 09:28 | Diagnostic Imaging Report ---
PROCEDURE:US CHEST (INCL MEDIASTINUM) COMPARISON:Chest radiograph 09/05/18. INDICATIONS:pleural effusion TECHNIQUE: Limited evaluation of bilateral chest was performed to evaluate for the presence of pleural effusion. FINDINGS/CONCLUSION: No evidence of pleural effusion. Dictated by: TETE SHERMAN M.D. on 09/07/2018 at 9:37 Electronically approved by: TETE SHERMAN M.D. on 09/07/2018 at 9:37
[2018-09-07 11:00] VITALS: BP 117/51
[2018-09-07 11:34] VITALS: BP 137/81
--- NOTE | 2018-09-07 12:00 | NUR ---
PT CONTINUES IN CHAIR. DAUGHTER AT BEDSIDE. UPDATED ON CURRENT STATUS AND POC. THEY VERBALIZE UNDERSTANDING HOWEVER PT CONTINUES TO ASK FOR MORE LIQUID THAN WHAT IS ORDERED OF 1200 CC Q SHIFT.
[2018-09-07] MEDS: AMIODARONE HCL 200 MG TAB PO SCH ×2 (12:47→17:08)
--- NOTE | 2018-09-07 15:00 | NUR ---
PT IS PARTICIPATING WITH THERAPY AND AMBULATED TO BR. DENIES PAIN.
--- NOTE | 2018-09-07 15:49 | NUR ---
SPOKE WITH PATIENT AND FAMILY, DAUGHTER IS A NURSE AND STATES SHE IS AWARE OF THE LOCAL SNF, GAVE LIST OF PROVIDERS IN NETWORK FOR AREA. SHE STATES IT WILL BE BETWEEN [facility], SHE WILL LET KNOW CHOICE IN MORNING NAND SIGN CHOICE.
--- NOTE | 2018-09-07 16:12 | NUR ---
PT DAUGHTER CHOOSE [facility] CALLED [facility] SHE WILL [employer]ARE[employer]SE PICKER CLINICALS IN THE MORNING
--- NOTE | 2018-09-07 17:00 | NUR ---
PT EATING WITH SON IN ROOM AND UPDATED ON STATUS AND POC.
[2018-09-07 19:39] VITALS: BP 126/75
[2018-09-07] MEDS: MONTELUKAST SODIUM 10 MG TAB PO SCH (20:22)
[2018-09-07] MEDS: SIMVASTATIN 40 MG TAB PO SCH (20:22)
[2018-09-07 23:45] VITALS: BP 111/62
--- NOTE | 2018-09-08 00:45 | NUR ---
patient was on O2 nasal canula when she was asleep and her O2 saturation was on high 80s. patient agreed to be put on BIPAP back. will continue to monitor.
[2018-09-08] MEDS: IPRATROPIUM BROMIDE 0.02% 2.5 ML NEB NEB SCH ×4 (02:45→19:10)
[2018-09-08] MEDS: ALBUTEROL SULF 0.083% NEB SOLN 3 ML NEB NEB SCH ×6 (02:45→23:20)
[2018-09-08 04:12] VITALS: BP 132/82
[2018-09-08 04:14] VITALS: BP 132/82
[2018-09-08] MEDS: PIPER-TAZ 3.375 GM 50 ML IV SCH ×3 (06:04→21:10)
[2018-09-08] MEDS: GUAIFENESIN/DEXTROMETHORPHAN LIQD 5 ML UDC NG SCH ×3 (06:04→21:10)
[2018-09-08] MEDS: NITROGLYCERIN 2% OINT 1 GM PKT TOP SCH ×3 (06:06→17:34)
--- NOTE | 2018-09-08 06:12 | NUR ---
patient is awake, gave her bath, she sitting on recliner and able to stand up changed linens and gown, she tolerated well. vitals checked, medicines scheduled given, will continue to monitor.
--- NOTE | 2018-09-08 06:40 | NUR ---
patient is able to brush her teeth by herself, nurse just provided the equipment.
[2018-09-08 07:45] VITALS: BP 157/73
--- NOTE | 2018-09-08 07:45 | NUR ---
PT RECEIVED SITTING UP IN BEDSIDE RECLINER, AA/O X3, NO C/O AT PRESENT. ASSESSMENT COMPLETE, VSS. PT REPORTS RECLINER IS MORE COMFORTABLE FOR HER, ADVISED WILL ALTERNATE PRESSURE TO BUTTOCKS WITH A BLANKET OR PILLOW, VERBALIZED UNDERSTANDING. IN NO APPARENT RESP DISTRESS, O2 2L, OCCASIONAL NONPRODUCTIVE COUGH HOWEVER LUNG SOUNDS NOTED WITH CRACKLES. CONTINUES IV LASIX AND IVABT. [facility] CATH IN PLACE, REMAINS ON FR 1200/24HR. DISCUSSED PLAN FOR DAY THERE ARE PLANS FOR SNF EVAL.
--- NOTE | 2018-09-08 08:08 | NUR ---
IM- Progress Note O/N: A.fib with RVR; REVIEW OF SYSTEMS: Unreliable. PHYSICAL EXAMINATION VITAL SIGNS: Reviewed. GENERAL: A tired-appearing woman, resting in bed. HEENT: Anicteric. She has BiPAP mask in place. CARDIOVASCULAR: Normal S1 and S2. LUNGS: She has reduced breath sounds throughout. ABDOMEN: Soft, nontender, and nondistended. EXTREMITIES: She has 1+ leg edema in bilateral lower extremities. SKIN: Dry. PSYCHIATRIC: Flat affect. NEUROLOGIC: Awake. LABS: Reviewed. MEDICATIONS: Reviewed. ASSESSMENT: A 68-year-old woman with; 1. Acute respiratory failure. 2. Severe sepsis. 3. Congestive heart failure, possibly diastolic. 4. Hypokalemia. 5. Hypercalcemia. 6. Urinary tract infection. 7. Right lung pneumonia. 8. Severe obesity, body mass index of 47.2. 9. Hypertension. 10. Hyperlipidemia. PLAN 1. Continue BiPAP support. 2. Antibiotic with azithromycin and ceftriaxone. 3. Antitussive medication Tessalon and guaifenesin DM. 4. Loratadine. 5. Continue on antihypertensive medications. 6. Obtain hemoglobin A1c and lipid panel and screen for diabetes. 7. Low TSH with elevated T4 but normal T3. Patient may have mild hyperparathyroidism. Does not appear to be on Synthroid, but that is unclear at this time. 8. We will use heparin for DVT prophylaxis and Pepcid for GI prophylaxis. DISPOSITION: Monitor closely. 09/04 A.fib with RVR overnight; Possibly sleep apnea; HypoKalemia- repalce; Hypercalcemia- check intact PTH. Move to IMCU. cct>35mins. 09/05 Improving WBC; sputum positive with yeast; cont care; ambulate 09/06 SNF eval; check labs; 09/07 doing ok; BIPAP overnight; cont PT; d/c planning; 09/08 on BIPAP overnight; improving; check labs; d/c planning; Salazar Sorenson MD, PhD.
[2018-09-08 08:13] LABS: BASOPHILS # (AUTO) 0.1 (0.0-0.1); BASOPHILS % 0.6 % (0.0-1.0); EOSINOPHILS # (AUTO) 0.4 (0.0-0.4); EOSINOPHILS % 2.8 % (0.0-6.0); HEMATOCRIT 36.8 % (34.2-44.1); HEMOGLOBIN 11.6 g/dL (12.0-16.0); LYMPHOCYTES # (AUTO) 1.7 (1.0-3.2); LYMPHOCYTES % 12.8 % (18.0-39.1); MEAN CORPUSCULAR HEMOGLOBIN 28.6 pg (28-32); MEAN CORPUSCULAR HGB CONC 31.5 g/dL (31-35); MEAN CORPUSCULAR VOLUME 90.9 fL (81-99); MONOCYTES % 7.4 % (4.4-11.3); NEUTROPHILS # (AUTO) 9.9 (2.1-6.9); NEUTROPHILS % 73.7 % (38.7-80.0); PLATELET COUNT 294 x10e3/uL (140-360); RED BLOOD COUNT 4.05 x10e6/uL (3.6-5.1); RED CELL DISTRIBUTION WIDTH 13.1 % (11.7-14.4)
[2018-09-08 08:28] LABS: ANION GAP 9.9 mmol/L (8-16); CALCIUM 12.9 mg/dL (8.4-10.2); MAGNESIUM 1.8 MG/DL (1.3-2.1); POTASSIUM 3.9 mmol/L (3.5-5.1)
[2018-09-08] MEDS: ENOXAPARIN SOD INJ 40 MG/0.4 ML SYR SC SCH ×2 (08:50→17:00)
[2018-09-08] MEDS: LORATADINE 10 MG TAB PO SCH (08:50)
[2018-09-08] MEDS: BENZONATATE 100 MG CAP PO SCH ×3 (08:50→21:10)
[2018-09-08] MEDS: DOCUSATE SODIUM 100 MG CAP PO SCH ×2 (08:50→17:34)
[2018-09-08] MEDS: FUROSEMIDE INJ 10 MG/ML 4 ML VIAL IV SCH ×2 (08:50→21:10)
[2018-09-08] MEDS: AMIODARONE HCL 200 MG TAB PO SCH ×2 (08:50→17:34)
[2018-09-08] MEDS: CARVEDILOL 12.5 MG TAB PO SCH ×2 (08:50→17:34)
[2018-09-08] MEDS: VALSARTAN 160 MG TAB PO SCH (08:50)
[2018-09-08 09:45] LABS: EOSINOPHILS % (MANUAL) 5 % (0-7); LYMPHOCYTES % (MANUAL) 10 % (19-48); METAMYELOCYTES % (MANUAL) 1 % (0-0); MONOCYTES % (MANUAL) 8 % (3.4-9.0); MYELOCYTES % (MANUAL) 2 % (0-0); NEUTROPHILS % (MANUAL) 73 % (40-74); RBC MORPHOLOGY COMMENT NORMAL
[2018-09-08 09:46] LABS: PLATELET ESTIMATE ADEQUATE; PLATELET MORPHOLOGY COMMENT FEW LARGE
[2018-09-08 12:15] VITALS: BP 155/75
--- NOTE | 2018-09-08 12:22 | NUR ---
MING SPOKE TO DR. PARIS REGARDING BIPAP AND SLEEP STUDY. DR. PARIS NOTIFIED THAT DOES NOT SET UP SLEEP STUDIES AND THE PATIENT IS BEING DISCHARGED TO [facility] SO THEY WILL INITIATE SET UP FOR HOME BIPAP PRIOR TO DISCHARGE.
--- NOTE | 2018-09-08 13:19 | Diagnostic Imaging Report ---
EXAM: XR CHEST 2 VIEWS DATE: 09/08/2018 7:00 AM INDICATION: Effusion COMPARISON: 09/04/2018, no report available FINDINGS: Limitations: Body habitus significantly limits. Lines and Tubes: Left PICC tip overlying SVC. Heart and Mediastinum: Prominent. Lungs and Pleura: Ill-defined basilar opacities. Bones and Soft Tissues: No acute findings. IMPRESSION: 1. Significantly limited due to body habitus. Basilar opacities could represent atelectasis, overlying soft tissues, edema, and/or pneumonia. Signed by: Dr. Robert Villalobos MD on 09/08/2018 1:16 PM
--- NOTE | 2018-09-08 13:34 | NUR ---
Nutrition Screen Note RD Recommendation for Physician: - Continue cardiac diet as medically appropriate - Weight daily; strict I & O - If PO <50%, consider Ensure compact - RD provided education on fluid restriction and sodium intake (09/08) Plan of Care: RD following, monitoring for tolerance and adequacy Nutrition reason for involvement: MD consult- no reason stated, follow up Primary Diagnose(s): Acute respiratory failure, Afib w RVR, PNA PMH: Congestive heart failure, hypertension, hyperlipidemia, and ambulatory dysfunction with the use of a walker, obesity Ht: 64in Wt: 294lb 09/06, 294lb 09/07 BMI: 50.5kg/m2 IBW: 120lb RD Assessment: (09/08) Chart reviewed. Labs and meds reviewed. Pt is on 1.2 L of fluids restriction. Pt reports of some improvement in appetite. Pt has been asking her to bring food for her. No GI complains at this time. LBM 09/07. Pt denies any chewing or swallowing difficulty. RD provided education on heart healthy diet. Will continue to monitor and follow. (09/06) Chart reviewed. Labs and meds reviewed. 68yo morbidly obese F, who is admitted for SOB and leg swelling. Pt appears sleepy during my visit. Pt reports eating ok today. No complain of N/V/D/C or abdominal pain at this time. LBM 12. Pt denies any chewing or swallowing difficulty. No report of recent weight loss NATUROPATH. Pt is currently on IV abx, wound care, and fluid restriction. Per wound care notes, pt has newly healed abrasion to distal mons pubis. RD do not think pt needs additional protein for wound recovery at this time. However, RD rec Ensure compact if PO < 50%. Diet education is not appropriate as pt appears to be sleepy. Continue to monitor and follow. Current Diet: Cardiac diet Malnutrition Evaluation (09/06/18) The patient does not meet criteria for a specified degree of malnutrition at this time. Will re-evaluate at follow-up as appropriate. Diet Education Needs Assessment: Diet education indicated, pt is agreeable. Learner(s): pt Barriers: Her habit of drinking excessive amount of fluids. Cultural/Language Modifications: n/a Readiness: unsure Method: explanation, handout Topics: heart healthy diet (fluid and sodium restriction) Understanding/Compliance: Understood. All questions have been answered. Nutrition Care Level: low Signed: Eloina Loya, MS, RD, LD
--- NOTE | 2018-09-08 14:01 | NUR ---
IS FRANCO [phone]
--- NOTE | 2018-09-08 17:35 | NUR ---
PT SEEN BY MEDICAL CENTER REPRESENTATIVE WHO RECOMMENDED PT HAVE ENSURE IF MEAL CONSUMPTIONS ARE <50%. THIS WAS EXPLAINED TO PT AND DAUGHTER WHILE PRESENT. PT EATING APPROX 50% OF ALL MEALS PLUS SNACKS BRINGS IN. UPON ROOM ENTRY PT REPORTED SHE IS NOT HUNGRY AND SHE JUST COMPLETED AN ENSURE. SON PRESENT IN ROOM AND AGAIN FLUID RESTRICTIONS WERE DISCUSSED WITH PATIENT AND ALSO THAT ENSURE IS NOT A MEAL REPLACEMENT. SON AND PT VERBALIZED UNDERSTANDING.
[2018-09-08 20:00] VITALS: BP 152/81
[2018-09-08] MEDS: MONTELUKAST SODIUM 10 MG TAB PO SCH (21:10)
[2018-09-08] MEDS: SIMVASTATIN 40 MG TAB PO SCH (21:10)
[2018-09-08 21:33] VITALS: BP 152/81
[2018-09-09] VITALS (8 sets, daily range): BP systolic 109–164; BP diastolic 66–97
[2018-09-09] MEDS: NITROGLYCERIN 2% OINT 1 GM PKT TOP SCH ×4 (00:10→17:00)
[2018-09-09] MEDS: ALBUTEROL SULF 0.083% NEB SOLN 3 ML NEB NEB SCH ×7 (02:50→23:25)
[2018-09-09] MEDS: IPRATROPIUM BROMIDE 0.02% 2.5 ML NEB NEB SCH ×4 (02:50→19:45)
[2018-09-09 04:56] LABS: BASOPHILS # (AUTO) 0.1 (0.0-0.1); BASOPHILS % 0.6 % (0.0-1.0); EOSINOPHILS # (AUTO) 0.3 (0.0-0.4); EOSINOPHILS % 2.5 % (0.0-6.0); HEMATOCRIT 35.3 % (34.2-44.1); HEMOGLOBIN 11.2 g/dL (12.0-16.0); LYMPHOCYTES # (AUTO) 1.9 (1.0-3.2); LYMPHOCYTES % 14.9 % (18.0-39.1); MEAN CORPUSCULAR HEMOGLOBIN 28.4 pg (28-32); MEAN CORPUSCULAR HGB CONC 31.7 g/dL (31-35); MEAN CORPUSCULAR VOLUME 89.4 fL (81-99); MONOCYTES % 7.7 % (4.4-11.3); NEUTROPHILS # (AUTO) 8.9 (2.1-6.9); PLATELET COUNT 297 x10e3/uL (140-360); RED BLOOD COUNT 3.95 x10e6/uL (3.6-5.1); RED CELL DISTRIBUTION WIDTH 12.9 % (11.7-14.4)
[2018-09-09 05:26] LABS: ALBUMIN 2.1 g/dL (3.5-5.0); ALBUMIN/GLOBULIN RATIO 0.5 (0.8-2.0); ANION GAP 9.5 mmol/L (8-16); CALCIUM 12.7 mg/dL (8.4-10.2); CREATININE, SERUM 1.03 mg/dL (0.57-1.11); POTASSIUM 3.5 mmol/L (3.5-5.1)
[2018-09-09 05:52] LABS: BAND NEUTROPHILS % (MANUAL) 5 %; EOSINOPHILS % (MANUAL) 1 % (0-7); LYMPHOCYTES % (MANUAL) 17 % (19-48); MONOCYTES % (MANUAL) 5 % (3.4-9.0); NEUTROPHILS % (MANUAL) 68 % (40-74); PLATELET ESTIMATE ADEQUATE; TOXIC GRANULATION MODERATE
[2018-09-09 05:53] LABS: PLATELET MORPHOLOGY COMMENT MODERATE LARGE; RBC MORPHOLOGY COMMENT NORMAL
[2018-09-09] MEDS: GUAIFENESIN/DEXTROMETHORPHAN LIQD 5 ML UDC NG SCH ×3 (06:00→22:18)
[2018-09-09] MEDS: PIPER-TAZ 3.375 GM 50 ML IV SCH ×3 (06:00→22:18)
--- NOTE | 2018-09-09 07:35 | NUR ---
PT RECEIVED SITTING UP IN BEDSIDE RECLINER, AA/O X3, NO C/O AT PRESENT. ASSESSMENT COMPLETE, VSS. CONTINUES TO SIT IN RECLINER, ADVISED WILL ALTERNATE PRESSURE TO BUTTOCKS WITH A BLANKET, VERBALIZED UNDERSTANDING. IN NO APPARENT RESP DISTRESS, O2 2L, OCCASIONAL NONPRODUCTIVE COUGH HOWEVER LUNG SOUNDS NOTED WITH CRACKLES. CONTINUES IV LASIX AND IVABT. [facility] CATH IN PLACE, TO BE REMOVED PER MD. REMAINS ON FR 1200/24HR, HOWEVER NONCOMPLIANT DUE TO FAMILY PROVIDING DRINKS. DISCUSSED PLAN FOR DAY THERE ARE PLANS FOR SNF.
--- NOTE | 2018-09-09 07:51 | NUR ---
IM- Progress Note O/N: A.fib with RVR; REVIEW OF SYSTEMS: Unreliable. PHYSICAL EXAMINATION VITAL SIGNS: Reviewed. GENERAL: A tired-appearing woman, resting in bed. HEENT: Anicteric. She has BiPAP mask in place. CARDIOVASCULAR: Normal S1 and S2. LUNGS: She has reduced breath sounds throughout. ABDOMEN: Soft, nontender, and nondistended. EXTREMITIES: She has 1+ leg edema in bilateral lower extremities. SKIN: Dry. PSYCHIATRIC: Flat affect. NEUROLOGIC: Awake. LABS: Reviewed. MEDICATIONS: Reviewed. ASSESSMENT: A 68-year-old woman with; 1. Acute respiratory failure. 2. Severe sepsis. 3. Congestive heart failure, possibly diastolic. 4. Hypokalemia. 5. Hypercalcemia. 6. Urinary tract infection. 7. Right lung pneumonia. 8. Severe obesity, body mass index of 47.2. 9. Hypertension. 10. Hyperlipidemia. PLAN 1. Continue BiPAP support. 2. Antibiotic with azithromycin and ceftriaxone. 3. Antitussive medication Tessalon and guaifenesin DM. 4. Loratadine. 5. Continue on antihypertensive medications. 6. Obtain hemoglobin A1c and lipid panel and screen for diabetes. 7. Low TSH with elevated T4 but normal T3. Patient may have mild hyperparathyroidism. Does not appear to be on Synthroid, but that is unclear at this time. 8. We will use heparin for DVT prophylaxis and Pepcid for GI prophylaxis. DISPOSITION: Monitor closely. 09/04 A.fib with RVR overnight; Possibly sleep apnea; HypoKalemia- repalce; Hypercalcemia- check intact PTH. Move to IMCU. cct>35mins. 09/05 Improving WBC; sputum positive with yeast; cont care; ambulate 09/06 SNF eval; check labs; 09/07 doing ok; BIPAP overnight; cont PT; d/c planning; 09/08 on BIPAP overnight; improving; check labs; d/c planning; 09/09 Hyperparathyroidism- inappropriately normal PTH with Hypercalcemia- start cinacalcet. D/C rushing; WBC continues to improve; d/c to SNF soon. Salazar Sorenson MD, PhD.
--- NOTE | 2018-09-09 09:03 | Diagnostic Imaging Report ---
PROCEDURE: X-RAY CHEST, TWO VIEWS COMPARISON: 09/08/2018. INDICATIONS: CONGESTIVE HEART FAILURE FINDINGS: Left upper extremity PICC is unchanged in position. Degree of lung inflation is similar to 09/08/2018, though aeration of the right lung base has slightly improved. Otherwise no appreciable interval change in enlargement of the cardiac silhouette, prominence of the pulmonary interstitium, and trace bilateral pleural effusions. No new airspace consolidation. No acute osseous abnormality. Exaggerated thoracic kyphosis is again noted. CONCLUSION: Interval improvement in aeration of the right lung base. Otherwise similar appearance of the chest relative to 09/08/2018, with enlargement of the cardiac silhouette and probable interstitial pulmonary edema. Dictated by: Blayne Yañez M.D. on 09/09/2018 at 9:13 Electronically approved by: Blayne Yañez M.D. on 09/09/2018 at 9:13
[2018-09-09] MEDS: LORATADINE 10 MG TAB PO SCH (09:24)
[2018-09-09] MEDS: CARVEDILOL 12.5 MG TAB PO SCH ×2 (09:24→17:00)
[2018-09-09] MEDS: VALSARTAN 160 MG TAB PO SCH (09:24)
[2018-09-09] MEDS: CINACALCET 30 MG TAB PO SCH (09:24)
[2018-09-09] MEDS: FUROSEMIDE INJ 10 MG/ML 4 ML VIAL IV SCH ×2 (09:24→21:00)
[2018-09-09] MEDS: DOCUSATE SODIUM 100 MG CAP PO SCH ×2 (09:24→17:00)
[2018-09-09] MEDS: BENZONATATE 100 MG CAP PO SCH ×3 (09:24→21:00)
[2018-09-09] MEDS: AMIODARONE HCL 200 MG TAB PO SCH ×2 (09:24→17:00)
[2018-09-09] MEDS ORDERED: POTASSIUM CHLORIDE 20 MEQ TAB CR PO STA (09:48)
--- NOTE | 2018-09-09 11:30 | NUR ---
FLUID RESTRICTION NOT MAINTAINED PER PT AND . BRINGS IN DRINKS AND SNACKS
--- NOTE | 2018-09-09 12:30 | NUR ---
UPON ROOM ENTRY PT NOTED TO BE DRINKING A ORANGE SODA THAT BROUGHT IN
--- NOTE | 2018-09-09 12:45 | NUR ---
[facility] CATH REMOVED, DTV
--- NOTE | 2018-09-09 14:00 | NUR ---
PT VOIDED AFTER [facility]
--- NOTE | 2018-09-09 14:05 | NUR ---
PT TRANSFERRED TO ROOM 201 VIA W/C WITH ASSIST OF 3 STAFF. O2 @ 2L, RT NOTIFIED. DAUGHTER PRESENT.
--- NOTE | 2018-09-09 14:05 | NUR ---
RCD PT FROM IMCU BY WHEEL CHAIR PT IS ALERT AND ORIENTED VITALS CHECKED PT RESTING ON BED FAMILY AT BED SIDE BED LOW AND LOCKED CALL LIGHT IN REACH
[2018-09-09] MEDS: ENOXAPARIN SOD INJ 40 MG/0.4 ML SYR SC SCH (17:00)
--- NOTE | 2018-09-09 18:41 | NUR ---
PT RESTING ON BED BED SIDE REPORT GIVEN TO ONCOMING NURSE
[2018-09-09] MEDS: MONTELUKAST SODIUM 10 MG TAB PO SCH (21:00)
[2018-09-09] MEDS: SIMVASTATIN 40 MG TAB PO SCH (21:00)
[2018-09-10] VITALS (7 sets, daily range): BP systolic 125–167; BP diastolic 63–86
[2018-09-10] MEDS: NITROGLYCERIN 2% OINT 1 GM PKT TOP SCH ×4 (00:34→17:30)
[2018-09-10] MEDS: ALBUTEROL SULF 0.083% NEB SOLN 3 ML NEB NEB SCH ×5 (03:20→19:45)
[2018-09-10] MEDS: IPRATROPIUM BROMIDE 0.02% 2.5 ML NEB NEB SCH ×4 (03:20→19:45)
[2018-09-10] MEDS: PIPER-TAZ 3.375 GM 50 ML IV SCH ×3 (06:20→21:55)
[2018-09-10] MEDS: GUAIFENESIN/DEXTROMETHORPHAN LIQD 5 ML UDC NG SCH ×3 (06:20→21:55)
--- NOTE | 2018-09-10 08:41 | NUR ---
CALLED [facility] TO SEE IF THERE WAS AN UPDATE FROM THE [employer]ER[employer]ANCE REFERRAL. SHE STATES NOT YET. WILL UPDATE WHEN GET NOTIFIED.
[2018-09-10] MEDS: DOCUSATE SODIUM 100 MG CAP PO SCH ×2 (09:45→17:30)
[2018-09-10] MEDS: CARVEDILOL 12.5 MG TAB PO SCH ×2 (09:45→17:30)
[2018-09-10] MEDS: VALSARTAN 160 MG TAB PO SCH (09:45)
[2018-09-10] MEDS: ASPIRIN 81 MG ENTERIC COATED PO SCH (09:45)
[2018-09-10] MEDS: CINACALCET 30 MG TAB PO SCH (09:45)
[2018-09-10] MEDS: LORATADINE 10 MG TAB PO SCH (09:45)
[2018-09-10] MEDS: BENZONATATE 100 MG CAP PO SCH ×3 (09:45→21:55)
[2018-09-10] MEDS ORDERED: POTASSIUM CHLORIDE 20 MEQ TAB CR PO STA (10:29)
[2018-09-10] MEDS: ENOXAPARIN SOD INJ 40 MG/0.4 ML SYR SC SCH (17:30)
[2018-09-10] MEDS: FUROSEMIDE 40 MG TAB PO SCH (17:30)
--- NOTE | 2018-09-10 19:15 | NUR ---
PATIENT RECEIVED. PATIENT RESTING IN RECLINER, AAOX3. RES EVEN AND UNLABORED WITH O2 AT 3L. NO ACUTE DISTRESS NOTED. PATIENT DENIES ANY PAIN OR DISCOMFORT. CALL LIGHT WITHIN REACH. INSTRUCT TO CALL FOR ASSISTANCE. BED LOW/LOCKED. CONTINUE TO MONITOR CLOSELY
--- NOTE | 2018-09-10 20:25 | NUR ---
PUT PATIENT ON TELE AND PULSE OX
[2018-09-10] MEDS: SIMVASTATIN 40 MG TAB PO SCH (21:55)
[2018-09-10] MEDS: MONTELUKAST SODIUM 10 MG TAB PO SCH (21:55)
[2018-09-11] VITALS (7 sets, daily range): BP systolic 145–178; BP diastolic 62–97
[2018-09-11] MEDS: NITROGLYCERIN 2% OINT 1 GM PKT TOP SCH ×3 (01:10→12:20)
[2018-09-11] MEDS: ALBUTEROL SULF 0.083% NEB SOLN 3 ML NEB NEB SCH ×5 (03:40→19:46)
[2018-09-11] MEDS: IPRATROPIUM BROMIDE 0.02% 2.5 ML NEB NEB SCH ×4 (03:40→19:46)
[2018-09-11] MEDS ORDERED: SODIUM CHLORIDE 0.9% 50ML 50 ML ONE (05:56)
[2018-09-11] MEDS: FUROSEMIDE 40 MG TAB PO SCH ×2 (05:58→17:13)
[2018-09-11] MEDS: GUAIFENESIN/DEXTROMETHORPHAN LIQD 5 ML UDC NG SCH ×3 (05:58→22:00)
[2018-09-11] MEDS: PIPER-TAZ 3.375 GM 50 ML IV SCH (05:58)
[2018-09-11 06:35] LABS: BASOPHILS # (AUTO) 0.1 (0.0-0.1); BASOPHILS % 0.9 % (0.0-1.0); EOSINOPHILS # (AUTO) 0.5 (0.0-0.4); EOSINOPHILS % 3.9 % (0.0-6.0); HEMOGLOBIN 12.4 g/dL (12.0-16.0); LYMPHOCYTES # (AUTO) 2.3 (1.0-3.2); LYMPHOCYTES % 19.4 % (18.0-39.1); MEAN CORPUSCULAR HEMOGLOBIN 28.3 pg (28-32); MEAN CORPUSCULAR HGB CONC 31.8 g/dL (31-35); MONOCYTES # (AUTO) 0.7 (0.2-0.8); MONOCYTES % 6.1 % (4.4-11.3); NEUTROPHILS # (AUTO) 7.7 (2.1-6.9); PLATELET COUNT 340 x10e3/uL (140-360); RED BLOOD COUNT 4.38 x10e6/uL (3.6-5.1)
[2018-09-11 06:56] LABS: ALBUMIN 2.4 g/dL (3.5-5.0); ALBUMIN/GLOBULIN RATIO 0.6 (0.8-2.0); ANION GAP 9.1 mmol/L (8-16); CALCIUM 12.4 mg/dL (8.4-10.2); POTASSIUM 4.1 mmol/L (3.5-5.1)
[2018-09-11 07:49] LABS: BAND NEUTROPHILS % (MANUAL) 2 %; EOSINOPHILS % (MANUAL) 2 % (0-7); LYMPHOCYTES % (MANUAL) 22 % (19-48); MONOCYTES % (MANUAL) 6 % (3.4-9.0); NEUTROPHILS % (MANUAL) 68 % (40-74); PLATELET ESTIMATE ADEQUATE
[2018-09-11 07:50] LABS: PLATELET MORPHOLOGY COMMENT NORMAL; RBC MORPHOLOGY COMMENT NORMAL
[2018-09-11] MEDS ORDERED: AMIODARONE HCL 200 MG TAB PO SCH (09:00)
[2018-09-11] MEDS: DOCUSATE SODIUM 100 MG CAP PO SCH ×2 (09:17→17:13)
[2018-09-11] MEDS: LORATADINE 10 MG TAB PO SCH (09:17)
[2018-09-11] MEDS: ASPIRIN 81 MG ENTERIC COATED PO SCH (09:17)
[2018-09-11] MEDS: CARVEDILOL 12.5 MG TAB PO SCH ×2 (09:18→17:13)
[2018-09-11] MEDS: CINACALCET 30 MG TAB PO SCH (09:18)
[2018-09-11] MEDS: VALSARTAN 160 MG TAB PO SCH (09:18)
[2018-09-11] MEDS: BENZONATATE 100 MG CAP PO SCH ×3 (09:18→20:17)
[2018-09-11] MEDS: ENOXAPARIN SOD INJ 40 MG/0.4 ML SYR SC SCH (17:13)
--- NOTE | 2018-09-11 19:00 | NUR ---
Patient visited in room during nursing rounds. Patient alert and oriented x3. Patient sitting on bedside recliner chair per pt preference. On 2L NC (humidified). BLE edematous but elevated when sitting on recliner. Condition stable. Will monitor patient closely.
[2018-09-11] MEDS: METOPROLOL TARTRATE INJ 1 MG/ML VIAL IV PRN (20:12)
[2018-09-11] MEDS: SIMVASTATIN 40 MG TAB PO SCH (20:17)
[2018-09-11] MEDS: MONTELUKAST SODIUM 10 MG TAB PO SCH (20:17)
[2018-09-12] VITALS (9 sets, daily range): BP systolic 117–186; BP diastolic 56–86
[2018-09-12] MEDS: IPRATROPIUM BROMIDE 0.02% 2.5 ML NEB NEB SCH ×4 (00:31→19:27)
[2018-09-12] MEDS: ALBUTEROL SULF 0.083% NEB SOLN 3 ML NEB NEB SCH ×7 (00:31→23:02)
--- NOTE | 2018-09-12 05:25 | NUR ---
Dr. Sorenson came and examined patient. Informed MD that patient's BP was elevated at 186/86. Dr. Sorenson stated he was going to order Hydralazine 50mg PO TID and Hydralazine 5mg IV Q4h for SBP > 150. stated ok to give both right now.
[2018-09-12] MEDS ORDERED: HYDRALAZINE HCL 20 MG/ML VIAL IV PRN (05:30)
--- NOTE | 2018-09-12 05:30 | NUR ---
IM- Progress Note O/N: A.fib with RVR; REVIEW OF SYSTEMS: Unreliable. PHYSICAL EXAMINATION VITAL SIGNS: Reviewed. GENERAL: A tired-appearing woman, resting in bed. HEENT: Anicteric. She has BiPAP mask in place. CARDIOVASCULAR: Normal S1 and S2. LUNGS: She has reduced breath sounds throughout. ABDOMEN: Soft, nontender, and nondistended. EXTREMITIES: She has 1+ leg edema in bilateral lower extremities. SKIN: Dry. PSYCHIATRIC: Flat affect. NEUROLOGIC: Awake. LABS: Reviewed. MEDICATIONS: Reviewed. ASSESSMENT: A 68-year-old woman with; 1. Acute respiratory failure. 2. Severe sepsis. 3. Congestive heart failure, possibly diastolic. 4. Hypokalemia. 5. Hypercalcemia. 6. Urinary tract infection. 7. Right lung pneumonia. 8. Severe obesity, body mass index of 47.2. 9. Hypertension. 10. Hyperlipidemia. PLAN 1. Continue BiPAP support. 2. Antibiotic with azithromycin and ceftriaxone. 3. Antitussive medication Tessalon and guaifenesin DM. 4. Loratadine. 5. Continue on antihypertensive medications. 6. Obtain hemoglobin A1c and lipid panel and screen for diabetes. 7. Low TSH with elevated T4 but normal T3. Patient may have mild hyperparathyroidism. Does not appear to be on Synthroid, but that is unclear at this time. 8. We will use heparin for DVT prophylaxis and Pepcid for GI prophylaxis. DISPOSITION: Monitor closely. 09/04 A.fib with RVR overnight; Possibly sleep apnea; HypoKalemia- repalce; Hypercalcemia- check intact PTH. Move to IMCU. cct>35mins. 09/05 Improving WBC; sputum positive with yeast; cont care; ambulate 09/06 SNF eval; check labs; 09/07 doing ok; BIPAP overnight; cont PT; d/c planning; 09/08 on BIPAP overnight; improving; check labs; d/c planning; 09/09 Hyperparathyroidism- inappropriately normal PTH with Hypercalcemia- start cinacalcet. D/C rushing; WBC continues to improve; d/c to SNF soon. 09/10 cont supportive care; 09/11 titrate BB up for uncontrolled HTN 09/12 start hydralazine; d/c nitro patch Salazar Sorenson MD, PhD.
[2018-09-12] MEDS: GUAIFENESIN/DEXTROMETHORPHAN LIQD 5 ML UDC NG SCH ×3 (05:43→22:28)
[2018-09-12] MEDS: FUROSEMIDE 40 MG TAB PO SCH ×2 (05:43→17:40)
[2018-09-12] MEDS: HYDRALAZINE HCL 25 MG TAB PO SCH ×4 (05:43→20:34)
[2018-09-12] MEDS: LORATADINE 10 MG TAB PO SCH (08:53)
[2018-09-12] MEDS: CARVEDILOL 12.5 MG TAB PO SCH ×2 (08:53→17:40)
[2018-09-12] MEDS: AMIODARONE HCL 200 MG TAB PO SCH (08:53)
[2018-09-12] MEDS: ASPIRIN 81 MG ENTERIC COATED PO SCH (08:53)
[2018-09-12] MEDS: DOCUSATE SODIUM 100 MG CAP PO SCH ×2 (08:53→17:40)
[2018-09-12] MEDS: VALSARTAN 160 MG TAB PO SCH (08:53)
[2018-09-12] MEDS: BENZONATATE 100 MG CAP PO SCH ×3 (08:54→20:34)
[2018-09-12] MEDS: CINACALCET 30 MG TAB PO SCH (08:54)
[2018-09-12] MEDS ORDERED: POTASSIUM CHLORIDE 20 MEQ TAB CR PO ONE (10:00)
[2018-09-12] MEDS ORDERED: METOLAZONE 5 MG TAB PO ONE (10:30)
[2018-09-12] MEDS: ENOXAPARIN SOD INJ 40 MG/0.4 ML SYR SC SCH (17:40)
[2018-09-12] MEDS: SIMVASTATIN 40 MG TAB PO SCH (20:34)
[2018-09-12] MEDS: MONTELUKAST SODIUM 10 MG TAB PO SCH (20:34)
[2018-09-13] VITALS (7 sets, daily range): BP systolic 95–137; BP diastolic 51–72
[2018-09-13] MEDS: IPRATROPIUM BROMIDE 0.02% 2.5 ML NEB NEB SCH ×4 (02:20→19:20)
[2018-09-13] MEDS: ALBUTEROL SULF 0.083% NEB SOLN 3 ML NEB NEB SCH ×6 (02:20→23:06)
[2018-09-13 04:55] LABS: BASOPHILS # (AUTO) 0.1 (0.0-0.1); BASOPHILS % 0.5 % (0.0-1.0); EOSINOPHILS # (AUTO) 0.3 (0.0-0.4); EOSINOPHILS % 2.6 % (0.0-6.0); HEMATOCRIT 40.5 % (34.2-44.1); HEMOGLOBIN 12.9 g/dL (12.0-16.0); LYMPHOCYTES # (AUTO) 1.7 (1.0-3.2); LYMPHOCYTES % 14.7 % (18.0-39.1); MEAN CORPUSCULAR HGB CONC 31.9 g/dL (31-35); MEAN CORPUSCULAR VOLUME 87.9 fL (81-99); MONOCYTES # (AUTO) 0.8 (0.2-0.8); MONOCYTES % 6.6 % (4.4-11.3); NEUTROPHILS # (AUTO) 8.6 (2.1-6.9); NEUTROPHILS % 73.6 % (38.7-80.0); PLATELET COUNT 342 x10e3/uL (140-360); RED BLOOD COUNT 4.61 x10e6/uL (3.6-5.1); RED CELL DISTRIBUTION WIDTH 13.3 % (11.7-14.4)
[2018-09-13 05:16] LABS: ALBUMIN 2.6 g/dL (3.5-5.0); ALBUMIN/GLOBULIN RATIO 0.6 (0.8-2.0); ANION GAP 13.5 mmol/L (8-16); CALCIUM 12.2 mg/dL (8.4-10.2); CREATININE, SERUM 1.25 mg/dL (0.57-1.11); POTASSIUM 3.5 mmol/L (3.5-5.1)
[2018-09-13] MEDS: GUAIFENESIN/DEXTROMETHORPHAN LIQD 5 ML UDC NG SCH ×3 (05:56→21:52)
[2018-09-13] MEDS: FUROSEMIDE 40 MG TAB PO SCH ×2 (05:56→18:02)
--- NOTE | 2018-09-13 07:00 | NUR ---
SHIFT REPORT RECEIVED FROM NIGHT RN. PT DENIES NEEDS AT THIS TIME.
[2018-09-13] MEDS: CARVEDILOL 12.5 MG TAB PO SCH ×2 (08:00→16:43)
[2018-09-13] MEDS: BENZONATATE 100 MG CAP PO SCH ×3 (09:08→20:38)
[2018-09-13] MEDS: AMIODARONE HCL 200 MG TAB PO SCH (09:08)
[2018-09-13] MEDS: DOCUSATE SODIUM 100 MG CAP PO SCH ×2 (09:08→16:43)
[2018-09-13] MEDS: LORATADINE 10 MG TAB PO SCH (09:08)
[2018-09-13] MEDS: VALSARTAN 160 MG TAB PO SCH (09:08)
[2018-09-13] MEDS: HYDRALAZINE HCL 25 MG TAB PO SCH ×3 (09:08→20:38)
[2018-09-13] MEDS: CINACALCET 30 MG TAB PO SCH (09:08)
[2018-09-13] MEDS: ASPIRIN 81 MG ENTERIC COATED PO SCH (09:08)
--- NOTE | 2018-09-13 16:27 | Progress Note ---
DATE: September 13, 2018 PULMONARY PROGRESS NOTE The patient is doing well. Feeling better. Breathing better. She is denying any complaints of chest pain. REVIEW OF SYSTEMS: Denies any nausea or vomiting. Still occasional shortness of breath and leg edema. PHYSICAL EXAMINATION GENERAL: Awake and alert. VITAL SIGNS: Temperature is 97, pulse of 65, blood pressure 112/68. CHEST: Clear to auscultation bilaterally. EXTREMITIES: Bilateral pedal edema, 2+. ASSESSMENT AND PLAN 1. [id number] diastolic heart failure. 2. Obesity. 3. Likely obstructive sleep apnea. PLAN: Continue the patient on diuretics. White cell count is improving. The patient is off of antibiotics. Oxygen has been off. I recommend outpatient sleep study. Job#: [id number] STANLEY
[2018-09-13] MEDS: ENOXAPARIN SOD INJ 40 MG/0.4 ML SYR SC SCH (16:43)
[2018-09-13 18:07] LABS: ANION GAP 13.2 mmol/L (8-16); CALCIUM 12.2 mg/dL (8.4-10.2); CREATININE, SERUM 1.76 mg/dL (0.57-1.11); POTASSIUM 3.2 mmol/L (3.5-5.1)
[2018-09-13] MEDS: MONTELUKAST SODIUM 10 MG TAB PO SCH (20:38)
[2018-09-13] MEDS: SIMVASTATIN 40 MG TAB PO SCH (20:38)
[2018-09-14] VITALS (9 sets, daily range): BP systolic 77–126; BP diastolic 50–74
[2018-09-14] MEDS: IPRATROPIUM BROMIDE 0.02% 2.5 ML NEB NEB SCH ×4 (01:00→20:45)
[2018-09-14] MEDS: ALBUTEROL SULF 0.083% NEB SOLN 3 ML NEB NEB SCH ×6 (02:44→23:45)
[2018-09-14] MEDS: GUAIFENESIN/DEXTROMETHORPHAN LIQD 5 ML UDC NG SCH ×3 (05:33→21:30)
[2018-09-14] MEDS: FUROSEMIDE 40 MG TAB PO SCH (05:33)
--- NOTE | 2018-09-14 06:12 | NUR ---
IM- Progress Note O/N: A.fib with RVR; REVIEW OF SYSTEMS: Unreliable. PHYSICAL EXAMINATION VITAL SIGNS: Reviewed. GENERAL: A tired-appearing woman, resting in bed. HEENT: Anicteric. She has BiPAP mask in place. CARDIOVASCULAR: Normal S1 and S2. LUNGS: She has reduced breath sounds throughout. ABDOMEN: Soft, nontender, and nondistended. EXTREMITIES: She has 1+ leg edema in bilateral lower extremities. SKIN: Dry. PSYCHIATRIC: Flat affect. NEUROLOGIC: Awake. LABS: Reviewed. MEDICATIONS: Reviewed. ASSESSMENT: A 68-year-old woman with; 1. Acute respiratory failure. 2. Severe sepsis. 3. Congestive heart failure, possibly diastolic. 4. Hypokalemia. 5. Hypercalcemia. 6. Urinary tract infection. 7. Right lung pneumonia. 8. Severe obesity, body mass index of 47.2. 9. Hypertension. 10. Hyperlipidemia. PLAN 1. Continue BiPAP support. 2. Antibiotic with azithromycin and ceftriaxone. 3. Antitussive medication Tessalon and guaifenesin DM. 4. Loratadine. 5. Continue on antihypertensive medications. 6. Obtain hemoglobin A1c and lipid panel and screen for diabetes. 7. Low TSH with elevated T4 but normal T3. Patient may have mild hyperparathyroidism. Does not appear to be on Synthroid, but that is unclear at this time. 8. We will use heparin for DVT prophylaxis and Pepcid for GI prophylaxis. DISPOSITION: Monitor closely. 09/04 A.fib with RVR overnight; Possibly sleep apnea; HypoKalemia- repalce; Hypercalcemia- check intact PTH. Move to IMCU. cct>35mins. 09/05 Improving WBC; sputum positive with yeast; cont care; ambulate 09/06 SNF eval; check labs; 09/07 doing ok; BIPAP overnight; cont PT; d/c planning; 09/08 on BIPAP overnight; improving; check labs; d/c planning; 09/09 Hyperparathyroidism- inappropriately normal PTH with Hypercalcemia- start cinacalcet. D/C rushing; WBC continues to improve; d/c to SNF soon. 09/10 cont supportive care; 09/11 titrate BB up for uncontrolled HTN 09/12 start hydralazine; d/c nitro patch 09/13 worsening renal fn with increased lasix; reduce lasix dosing; 09/14 renal fn worse; stop lasix altogether. give some fluid. recheck renal fn this am. Salazar Sorenson MD, PhD.
[2018-09-14] MEDS ORDERED: SODIUM CHLORIDE 0.9% 250ML 250 ML ONE (06:19)
[2018-09-14] MEDS ORDERED: SODIUM CHLORIDE 0.9% 250ML 250 ML IV ONE (07:00)
--- NOTE | 2018-09-14 07:00 | NUR ---
SHIFT REPORT RECEIVED FROM NIGHT RN. PT DENIES NEEDS AT THIS TIME.
[2018-09-14 08:38] LABS: ANION GAP 15.4 mmol/L (8-16); CALCIUM 12.1 mg/dL (8.4-10.2); CREATININE, SERUM 2.06 mg/dL (0.57-1.11); POTASSIUM 3.4 mmol/L (3.5-5.1)
[2018-09-14] MEDS: HYDRALAZINE HCL 25 MG TAB PO SCH ×2 (09:00→15:00)
[2018-09-14] MEDS: CARVEDILOL 12.5 MG TAB PO SCH ×2 (09:08→16:10)
[2018-09-14] MEDS: ASPIRIN 81 MG ENTERIC COATED PO SCH (09:09)
[2018-09-14] MEDS: AMIODARONE HCL 200 MG TAB PO SCH (09:09)
[2018-09-14] MEDS: LORATADINE 10 MG TAB PO SCH (09:09)
[2018-09-14] MEDS: CINACALCET 30 MG TAB PO SCH (09:09)
[2018-09-14] MEDS: DOCUSATE SODIUM 100 MG CAP PO SCH ×2 (09:09→16:07)
[2018-09-14] MEDS: BENZONATATE 100 MG CAP PO SCH ×3 (09:09→21:30)
[2018-09-14] MEDS: VALSARTAN 160 MG TAB PO SCH (09:09)
--- NOTE | 2018-09-14 10:36 | NUR ---
PT IS GOING TO ROOM [facility] PER [facility] [phone]
--- NOTE | 2018-09-14 12:30 | NUR ---
CALLED DR. LYONS FOR DISCHARGE TO [facility]. READ THIS AM'S LABS AND DR. LYONS STATED TO KEEP THE PT AND CONSULT DR. FERNANDEZ, NEPHROLOGY.
--- NOTE | 2018-09-14 12:30 | NUR ---
MAHIN FROM THE STANDPOINT OF DR. FRAZIER FOR PT TO TRANSFER TO [facility].
[2018-09-14] MEDS: ENOXAPARIN SOD INJ 40 MG/0.4 ML SYR SC SCH (16:07)
[2018-09-14] MEDS ORDERED: SODIUM CHLORIDE 0.9% 1000ML 1,000 ML ONE (17:57)
[2018-09-14] MEDS ORDERED: SODIUM CHLORIDE 0.9% 500ML 500 ML IV ONE ×2 (18:01→18:15)
--- NOTE | 2018-09-14 19:17 | NUR ---
PT STATED FEELING DIZZY. AFTER CHECKING BP, 58/45. THIS NURSE RECLINED PT IN CHAIR AND ELEVATED FEET AND STARTED A BOLUS OF NS WHILE CHET SUMMERS CALLED DR. LYONS FOR ORDERS. ORDERS RECEIVED TO BOLUS 500 AND CHANGES MADE TO MEDICATIONS. PT STATED FEELING BETTER AND B/P IS NOW 119/58 WITH A PULSE OF 63. NEPHROLOGY WILL BE IN TO SEE PT IN THE AM.
[2018-09-14] MEDS: MONTELUKAST SODIUM 10 MG TAB PO SCH (21:30)
[2018-09-14] MEDS: SIMVASTATIN 40 MG TAB PO SCH (21:30)
[2018-09-15] MEDS: ALBUTEROL SULF 0.083% NEB SOLN 3 ML NEB NEB SCH ×6 (03:30→23:00)
[2018-09-15] MEDS: IPRATROPIUM BROMIDE 0.02% 2.5 ML NEB NEB SCH ×4 (03:30→21:00)
[2018-09-15 05:00] VITALS: BP 124/72
[2018-09-15] MEDS: GUAIFENESIN/DEXTROMETHORPHAN LIQD 5 ML UDC NG SCH ×3 (05:08→21:18)
[2018-09-15 05:34] LABS: ALBUMIN 2.4 g/dL (3.5-5.0); ALBUMIN/GLOBULIN RATIO 0.6 (0.8-2.0); ANION GAP 12.2 mmol/L (8-16); CALCIUM 11.3 mg/dL (8.4-10.2); CREATININE, SERUM 1.87 mg/dL (0.57-1.11); POTASSIUM 3.2 mmol/L (3.5-5.1)
--- NOTE | 2018-09-15 07:02 | NUR ---
Received patient sitting on recliner, call light within reach. AAOX4 to time, perosn, place, situation. Respirations even and unlabored. O2 2L NC. Instructed patient to use call light for assistance.
[2018-09-15 08:27] VITALS: BP 137/64
[2018-09-15] MEDS ORDERED: POTASSIUM CHLORIDE 10MEQ EA PO ONE (09:00)
[2018-09-15] MEDS ORDERED: ACETAMINOPHEN 325 MG TAB PO PRN (09:00)
[2018-09-15] MEDS ORDERED: VALSARTAN 160 MG TAB PO SCH (09:00)
[2018-09-15 09:25] VITALS: BP 137/64
[2018-09-15] MEDS: CINACALCET 30 MG TAB PO SCH (09:28)
[2018-09-15] MEDS: CARVEDILOL 12.5 MG TAB PO SCH ×2 (09:28→16:55)
[2018-09-15] MEDS: DOCUSATE SODIUM 100 MG CAP PO SCH ×2 (09:28→16:54)
[2018-09-15] MEDS: ASPIRIN 81 MG ENTERIC COATED PO SCH (09:28)
[2018-09-15] MEDS: AMIODARONE HCL 200 MG TAB PO SCH (09:28)
[2018-09-15] MEDS: BENZONATATE 100 MG CAP PO SCH ×3 (09:28→21:18)
[2018-09-15] MEDS: LORATADINE 10 MG TAB PO SCH (09:28)
--- NOTE | 2018-09-15 10:21 | NUR ---
Spoke with pt and her Blayne at bedside. Pt lives with her at their own home. Blayne is the emergency contact at [phone]. Additional emergency contact is son Jr. Blayne at [phone]. Pt uses a rollator at home. Pt stated she does not want to go to [facility] any longer. Would like to go home with home health instead. Pt's is requesting electric lift chair, portable oxygen, and bedside commode. CM explained to pt and her that she would have to qualify for these equipment for it to be covered by insurance. Blayne stated he talked to his insurance and was told they would need a prescription. Also was given in-network company [employer]. They would like to use [employer]. Choice letter signed and placed in chart. Copy to pt. CM will follow up with [facility] regarding DME requests. CM also spoke with pt regarding outpatient sleep study. Pt stated she does not need one. She's had one before and did not do well with bipap. Does not want sleep study done. Gave pt's business card for any questions/concerns. Also, CM information written on board.
[2018-09-15 11:52] VITALS: BP 107/54
[2018-09-15] MEDS ORDERED: POTASSIUM CHLORIDE 20 MEQ TAB CR PO SCH ×3 (12:00→17:00)
--- NOTE | 2018-09-15 12:00 | NUR ---
aware of consult
--- NOTE | 2018-09-15 14:49 | NUR ---
MING spoke with Tony with [facility]. He stated that they don't have electric lift chairs and that for insurance to provide it, pt would have to have a qualifying diagnosis for need. MING explained this to pt and she acknowledged. Stated she didn't think it would be covered by insurance. CM also informed pt that bedside commode will be standard sized commode. MING spoke to pt regarding choice for home health. Pt asked that CM speak to her daughter Paula Corona [phone]. MING called and spoke to Paula who stated she didn't have a preference for home health and to go with one that takes her insurance. MING spoke with pt again and she is agreeable to one that takes her insurance. Choice letter signed for [facility] and placed in chart. Copy to pt. Referral was sent to [facility] at F [phone] / P [phone] Referral for 3-in-1 commode sent to [facility] F [phone] / P [phone]
--- NOTE | 2018-09-15 15:46 | NUR ---
Nutrition Screen Note RD Recommendation for Physician: - Continue cardiac diet as ordered - Weight daily; strict I & O - RD provided education on fluid restriction and sodium intake (09/08) Plan of Care: RD following, monitoring for tolerance and adequacy Nutrition reason for involvement: Follow up Primary Diagnose(s): Acute respiratory failure, Afib w RVR, PNA PMH: Congestive heart failure, hypertension, hyperlipidemia, and ambulatory dysfunction with the use of a walker, obesity Ht: 64in Wt: 294lb 09/06, 294lb 09/07 BMI: 50.5kg/m2 IBW: 120lb RD Assessment: (09/15) Chart reviewed. Labs and meds reviewed. Visited pt in the room. Pt has been eating very well since I last saw her. RN recorded ~75-100% meal intake. No GI complains noted. LBM 09/15. Will continue to monitor and follow. (09/08) Chart reviewed. Labs and meds reviewed. Pt is on 1.2 L of fluids restriction. Pt reports of some improvement in appetite. Pt has been asking her to bring food for her. No GI complains at this time. LBM 09/07. Pt denies any chewing or swallowing difficulty. RD provided education on heart healthy diet. Will continue to monitor and follow. (09/06) Chart reviewed. Labs and meds reviewed. 68yo morbidly obese F, who is admitted for SOB and leg swelling. Pt appears sleepy during my visit. Pt reports eating ok today. No complain of N/V/D/C or abdominal pain at this time. LBM 09/06. Pt denies any chewing or swallowing difficulty. 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 Pt is currently on IV abx, wound care, and fluid restriction. Per wound care notes, pt has newly healed abrasion to distal mons pubis. RD do not think pt needs additional protein for wound recovery at this time. However, RD rec Ensure compact if PO < 50%. Diet education is not appropriate as pt appears to be sleepy. Continue to monitor and follow. Current Diet: Cardiac diet Malnutrition Evaluation (09/06/18) The patient does not meet criteria for a specified degree of malnutrition at this time. Will re-evaluate at follow-up as appropriate. Diet Education Needs Assessment: Diet education indicated, pt is agreeable. Learner(s): pt Barriers: Her habit of drinking excessive amount of fluids. Cultural/Language Modifications: n/a Readiness: unsure Method: explanation, handout Topics: heart healthy diet (fluid and sodium restriction) Understanding/Compliance: Understood. All questions have been answered. Nutrition Care Level: low Signed: Eloina Loya, MS, RD, LD
[2018-09-15 15:52] VITALS: BP 107/54
--- NOTE | 2018-09-15 16:40 | NUR ---
Spoke with pt's daughter Paula at bedside. She is inquiring about providers. CM gave her senior resource guide and brochure/business card for providers in the area. RT completed home o2 eval. Pt o2 sat at 87% on room air. Referral was faxed to [facility]. Tony Kennedy was notified and informed pending discharge for tomorrow.
--- NOTE | 2018-09-15 16:40 | Consultation ---
DATE OF CONSULTATION: September 15, 2018 RENAL CONSULTATION Thank you for the consult, Dr. Lyons. HISTORY OF PRESENT ILLNESS: Ms. Hi is a pleasant 68-year-old female patient with past medical history significant for hypertension, history of COPD, history of asthma, no history of diabetes mellitus, does have a history of what appears to be chronic kidney disease. Came into the hospital with shortness of breath and pneumonia, also electrolyte abnormalities, and also was found on blood work to have elevated renal indices. Creatinine initially was 1 and then has been climbing, was 1.25 on September 13, 1.76 and then 2.1 and now back down to 1.9. A renal consultation has been asked for in the management of her chronic kidney disease. Based on most recent creatinine, it would appear to be at stage 3. Incidentally of note, patient was found to have elevated calcium level of 11.3. It was at 12.4. Initially when the patient came in, it was actually 12.1. Creatinine was normal. The calcium went as high as 12.6. Patient's GFR had dropped all the way down to 24 mL/min. It is starting to come up at 27 mL/min. Renal consultation has been asked for in the management of her acute kidney injury on chronic kidney disease stage 3. Currently no fever, chills, nausea, vomiting, diarrhea, no abdominal pain, no other specific symptoms. Lower extremity edema has also improved. Shortness of breath has also improved. PAST MEDICAL HISTORY: As outlined above. ALLERGIES: NO KNOWN DRUG ALLERGIES. SOCIAL HISTORY: No tobacco, no alcohol use. FAMILY HISTORY: Noncontributory. REVIEW OF SYSTEMS: See HPI. Otherwise all systems negative. MEDICATIONS: Have all been reviewed per chart. In particular, the patient currently is on amiodarone, aspirin, Tessalon Perles, carvedilol, cinacalcet, hydralazine, loratadine, losartan. PHYSICAL EXAMINATION VITAL SIGNS: Last blood pressure was 107/54, pulse 61, respirations 18, afebrile. HEENT: No cervical lymphadenopathy. Neck supple without masses. No obvious JVD. Moist-appearing oral mucosa. SKIN: Appears to be moist with good skin turgor. CHEST WALL: Good expansion. No chest wall tenderness. LUNGS: Rales at the bases bilaterally. CARDIOVASCULAR: S1 and S2. No obvious gallop, rub or murmur. ABDOMEN: Soft. Positive bowel sounds. Nontender. No organomegaly. EXTREMITIES: Evidence of 1+ edema in the lower extremities. No clubbing, no cyanosis. NEUROLOGICALLY: Awake, alert, oriented x3. Grossly nonfocal exam. Chest x-ray shows interval improvement in aeration of right lung base and does still have some interstitial mild pulmonary edema. Labs from today: Sodium is 134, potassium 3.2, chloride 90, bicarb 35, BUN is 26, creatinine is 1.87, calcium is 11.3. Albumin is 2.4, globulin is 3.7. Hematology shows white count 11.7, H&H 12.9 and 40.5, platelets of 342. IMPRESSION AND PLAN 1. Acute kidney injury on chronic kidney disease stage 3. At baseline has CKD stage 3. Cause for CKD stage 3 is likely history of hypertension. Acute kidney injury is likely secondary to the patient developing episodic transient hypotension while she was here. The patient was on several blood pressure medications. Doses of these have been decreased. Patient's blood pressure is now starting to get better; and, hence, the kidney function is starting to improve. Also of note is the fact that the patient's calcium was as high as 12.6. Patient is not getting any calcium supplementation, but if she has not had a prior history of any hypercalcemia, then she will certainly warrant workup for hypercalcemia as outlined below. For now would not give any IV fluids since the patient still has evidence of some mild interstitial pulmonary edema; rather, would favor diuresing her with IV Lasix. Patient was diuresed and did improve some. Chest x-ray is still showing some mild degree of interstitial pulmonary edema. Recheck labs in the morning including basic metabolic panel, mag, phos, CBC, urine electrolytes, and make further recommendations. Avoid potential nephrotoxic agents. Avoid MARI inhibitors, ARBs, and nonsteroidal anti-inflammatory drugs and IV dye. I would also hold the valsartan dose since the patient is in an acute kidney injury setting. 2. Hypertension/hypotension. Blood pressure is starting to come up but is still on the low side of normal. Will discontinue the valsartan and write holding parameters for her carvedilol. 3. History of congestive heart failure/fluid overload. I would continue with diuresis with Lasix. I would give her 40 mg IV daily, will give 1 dose now and continue. Will also replace potassium. 4. Hyponatremia, likely from fluid overload. Will continue with diuresis, give Lasix 40 mg IV now and daily. 5. Hypokalemia. Will replace with 40 mEq IV now and continue 20 mEq twice a day. 6. Hypercalcemia. Unclear cause for the hypercalcemia. Apparently patient is on Sensipar, which may or may not have been a chronic medicine. Does not have any indication per se for Sensipar. It is not clear whether the PTH level is low because the patient has chronically been on Sensipar or if the Sensipar has been started while she has been hospitalized here. If the case is the former, then she may have had a diagnosis of primary hyperparathyroidism which currently does not require surgery; or if the diagnosis is that she does not have primary hyperparathyroidism, then she would not be a candidate to be on Sensipar, and if the Sensipar was started during this hospitalization would then discontinue the Sensipar. I would do further workup, in any case, for the hypercalcemia and I would continue with diuresis with Lasix, which will help improve the calcium. Cannot give IV fluids right now since the patient has been fluid-overloaded. Will check workup such as a serum protein electrophoresis, urine protein electrophoresis to evaluate for paraproteinemia. Will also get a PTH-related peptide. Will also get a vitamin D 1,25(OH) level to evaluate for granulomatous condition for the hypercalcemia such as lymphoma as well. Would also check a serum MARI level to evaluate for possibility of sarcoidosis-associated hypercalcemia. Will make further recommendations. Thank you once again for the consultation, Dr. Lyons. Will follow the patient closely along with you and make further recommendations. Job#: [id number] EV cc:KEL LYONS MD
[2018-09-15] MEDS: FUROSEMIDE INJ 10 MG/ML 4 ML VIAL IV SCH (16:54)
[2018-09-15 18:11] LABS: BILIRUBIN,URINE NEGATIVE (NEGATIVE); CLARITY,URINE HAZY (CLEAR); COLOR,URINE YELLOW (YELLOW); KETONES,URINE NEGATIVE (NEGATIVE); LEUKOCYTE ESTERASE ,URINE 1+ (NEGATIVE); NITRITE,URINE NEGATIVE (NEGATIVE); PROTEIN,URINE DIPSTICK NEGATIVE (NEGATIVE); URINE UROBILINOGEN 0.2 mg/dL (0.2 - 1)
[2018-09-15 18:40] LABS: BACTERIA,URINE RARE /HPF; EPITHELIAL CELLS,URINE FEW /LPF; RBC,URINE 0-5 /HPF (0-5)
--- NOTE | 2018-09-15 18:50 | NUR ---
Taken to radiology. No s/s of acute distress noted. Report given to oncoming nurse of patient's status.
[2018-09-15 20:00] VITALS: BP 118/65
[2018-09-15 20:04] LABS: TOTAL PROTEIN, URINE < 6.8 mg/dL (1-14)
[2018-09-15 20:38] LABS: CREATININE,URINE RANDOM 37.72 mg/dL (47-110)
--- NOTE | 2018-09-15 20:47 | Diagnostic Imaging Report ---
BONE SURVEY X-RAY - 20 VIEWS HISTORY: ^hypercalcemia COMPARISON: None available. FINDINGS: Bones: No acute displaced fracture. No lytic or sclerotic lesions throughout the axial and appendicular skeleton. Osseous alignment is within normal limits. Joints: Degenerative changes of the lumbar spine. Soft tissues: The soft tissues appear unremarkable. IMPRESSION: No lytic or sclerotic lesions throughout the axial and appendicular skeleton. Signed by: Dr. Lauryn Brito M.D. on 09/15/2018 8:44 PM
[2018-09-15] MEDS: SIMVASTATIN 40 MG TAB PO SCH (21:18)
[2018-09-15] MEDS: MONTELUKAST SODIUM 10 MG TAB PO SCH (21:18)
[2018-09-16] VITALS (7 sets, daily range): BP systolic 108–128; BP diastolic 56–64
[2018-09-16] MEDS: IPRATROPIUM BROMIDE 0.02% 2.5 ML NEB NEB SCH ×4 (02:00→20:04)
[2018-09-16] MEDS: ALBUTEROL SULF 0.083% NEB SOLN 3 ML NEB NEB SCH ×6 (02:00→20:11)
[2018-09-16] MEDS: GUAIFENESIN/DEXTROMETHORPHAN LIQD 5 ML UDC NG SCH ×3 (05:14→20:35)
[2018-09-16 05:49] LABS: BASOPHILS # (AUTO) 0.1 (0.0-0.1); BASOPHILS % 0.6 % (0.0-1.0); EOSINOPHILS # (AUTO) 0.4 (0.0-0.4); EOSINOPHILS % 3.7 % (0.0-6.0); HEMATOCRIT 40.4 % (34.2-44.1); HEMOGLOBIN 12.9 g/dL (12.0-16.0); LYMPHOCYTES # (AUTO) 2.2 (1.0-3.2); LYMPHOCYTES % 22.2 % (18.0-39.1); MEAN CORPUSCULAR HEMOGLOBIN 28.4 pg (28-32); MEAN CORPUSCULAR HGB CONC 31.9 g/dL (31-35); MEAN CORPUSCULAR VOLUME 88.8 fL (81-99); MONOCYTES # (AUTO) 1.2 (0.2-0.8); MONOCYTES % 12.4 % (4.4-11.3); NEUTROPHILS % 59.9 % (38.7-80.0); PLATELET COUNT 283 x10e3/uL (140-360); RED BLOOD COUNT 4.55 x10e6/uL (3.6-5.1); RED CELL DISTRIBUTION WIDTH 13.5 % (11.7-14.4)
[2018-09-16 06:01] LABS: ANION GAP 13.6 mmol/L (8-16); CALCIUM 11.2 mg/dL (8.4-10.2); CREATININE, SERUM 1.69 mg/dL (0.57-1.11); MAGNESIUM 1.8 MG/DL (1.3-2.1); PHOSPHORUS 2.4 MG/DL (2.3-4.7); POTASSIUM 3.6 mmol/L (3.5-5.1)
--- NOTE | 2018-09-16 07:06 | NUR ---
IM- Progress Note O/N: A.fib with RVR; REVIEW OF SYSTEMS: Unreliable. PHYSICAL EXAMINATION VITAL SIGNS: Reviewed. GENERAL: A tired-appearing woman, resting in bed. HEENT: Anicteric. She has BiPAP mask in place. CARDIOVASCULAR: Normal S1 and S2. LUNGS: She has reduced breath sounds throughout. ABDOMEN: Soft, nontender, and nondistended. EXTREMITIES: She has 1+ leg edema in bilateral lower extremities. SKIN: Dry. PSYCHIATRIC: Flat affect. NEUROLOGIC: Awake. LABS: Reviewed. MEDICATIONS: Reviewed. ASSESSMENT: A 68-year-old woman with; 1. Acute respiratory failure. 2. Severe sepsis. 3. Congestive heart failure, possibly diastolic. 4. Hypokalemia. 5. Hypercalcemia. 6. Urinary tract infection. 7. Right lung pneumonia. 8. Severe obesity, body mass index of 47.2. 9. Hypertension. 10. Hyperlipidemia. PLAN 1. Continue BiPAP support. 2. Antibiotic with azithromycin and ceftriaxone. 3. Antitussive medication Tessalon and guaifenesin DM. 4. Loratadine. 5. Continue on antihypertensive medications. 6. Obtain hemoglobin A1c and lipid panel and screen for diabetes. 7. Low TSH with elevated T4 but normal T3. Patient may have mild hyperparathyroidism. Does not appear to be on Synthroid, but that is unclear at this time. 8. We will use heparin for DVT prophylaxis and Pepcid for GI prophylaxis. DISPOSITION: Monitor closely. 09/04 A.fib with RVR overnight; Possibly sleep apnea; HypoKalemia- repalce; Hypercalcemia- check intact PTH. Move to IMCU. cct>35mins. 09/05 Improving WBC; sputum positive with yeast; cont care; ambulate 09/06 SNF eval; check labs; 09/07 doing ok; BIPAP overnight; cont PT; d/c planning; 09/08 on BIPAP overnight; improving; check labs; d/c planning; 09/09 Hyperparathyroidism- inappropriately normal PTH with Hypercalcemia- start cinacalcet. D/C rushing; WBC continues to improve; d/c to SNF soon. 09/10 cont supportive care; 09/11 titrate BB up for uncontrolled HTN 09/12 start hydralazine; d/c nitro patch 09/13 worsening renal fn with increased lasix; reduce lasix dosing; 09/14 renal fn worse; stop lasix altogether. give some fluid. recheck renal fn this am. 09/15 renal fn beginning to improve after lasix stopped and some fluid given; f/u. 09/16 appreciate 's recommendations; cont care. Salazar Sorenson MD, PhD.
--- NOTE | 2018-09-16 07:10 | NUR ---
Sitting on recliner call light within reach. Resting with eyes closed. Arousable to verbal stimuli. Respirations even and unlabored. Will continue to monitor.
--- NOTE | 2018-09-16 08:56 | Progress Note ---
DATE: September 16, 2018 RENAL PROGRESS NOTE SUBJECTIVE: Followed for acute kidney injury on chronic kidney disease, stage 3. Acute kidney injury continues to improve. Creatinine is better today at 1.7. The patient's blood pressure has also improved. Therefore, kidney function is improving. The patient is also diuresing better with IV Lasix. Calcium is slightly better at 11.2 with diuresis with Lasix. The patient had a normal PTH. Apparently, was not taking Sensipar prior to admission. She also says that her calcium has run high in the past, and she had workup done. She says that she has had a parathyroid scan done in the outpatient setting by her primary care doctor, and was not diagnosed with a parathyroid adenoma. Her parathyroid hormone level in any case was normal here, which does not in line with primary hyperparathyroidism. Currently, no nausea. No vomiting. No shortness of breath. OBJECTIVE VITAL SIGNS: Have been noted. Blood pressure is 128/59, 60 pulse, 18 respirations. LUNGS: Mostly clear to auscultation bilaterally. CARDIOVASCULAR: S1 and S2. No rub. ABDOMEN: Soft and nontender. EXTREMITIES: Trace edema. LABS: As follows: Sodium 135, potassium 3.6, chloride 92, carb is 33, BUN 28, creatinine 1.69, glucose 89. Calcium is 11.2. Phosphorus 2.4. Magnesium is 1.8. Serum protein electrophoresis with immunofixation is pending. Urine protein electrophoresis with immunofixation is pending. PTH was normal. PTH related peptide is pending. Serum MARI level is also pending. Vitamin D125 OH level is not available as a test. Will probably have to be ordered as special test at this hospital. Skeletal bone survey whole body survey was done, and did not show any lytic bone lesions. IMPRESSION AND PLAN 1. Acute kidney injury on chronic kidney disease, stage 3: Acute kidney injury is improving after improvement of blood pressure and improvement in the calcium level. Continue off MARI inhibitor or ARB. Continue to correct the calcium and continue off intravenous fluids. Continue Lasix 40 mg daily. Recheck labs in the morning. 2. Hypertension: Blood pressure is much better controlled now. It is not dropping too low. 3. Hypercalcemia: Workup is underway. Whole body skeletal survey was negative for any lytic bone lesions. The patient has not been anemic or having any low platelets. There is evidence of low albumin, as well as high globulin on the blood test results, which is suggestive of nondiagnostic paraproteinemia. If the patient's serum protein or urine protein electrophoresis did come back as preliminarily diagnostic, then would consider recommending to do a bone marrow biopsy to evaluate for paraproteinemia. Will also follow up on the results of the PTH related peptide, as well as the serum MARI levels, as well as vitamin D125 OH levels. For now, will add subcutaneous calcitonin also. There is currently no indication for the patient to be on Sensipar especially since the patient has normal PTH level, which she did have to begin with. The patient also indicates to me that she did not in the outpatient setting have a diagnosis of parathyroid adenoma. She has apparently had PTH scans done by her primary care doctor in the outpatient setting. Would attempt to get the reports of the results. For now, will add subcutaneous calcitonin, and continue IV Lasix. No IV fluids since the patient gets fluid overloaded. Job#: [id number] STANLEY
--- NOTE | 2018-09-16 09:54 | Diagnostic Imaging Report ---
PROCEDURE:US RETROPERITONEAL ( KIDNEY ). COMPARISON:None. INDICATIONS:EVALUATE FOR HYDRONEPHROSIS TECHNIQUE: Hull-scale and color sonographic images of the bilateral kidneys and bladder where obtained in transverse and longitudinal planes. FINDINGS: RIGHT KIDNEY: 13.5 cm, cortex 1.6 cm Cysts: 3 large ovoid anechoic structures are identified, in the interpolar region measuring 3.6 x 2.7 x 2.8 cm and 5.7 x 3.1 x 7.5 cm, and in the lower pole measuring 3.5 x 2.4 x 4.2 cm. The 3.6 and meter lesion has internal, shadowing echogenic focus compatible with calcification. The other 2 lesions show no solid component. Solid masses: None Stones: None Hydronephrosis: Cystic lesions as above, which obscure the renal pelvis. Echogenicity: Normal renal cortical echogenicity. LEFT KIDNEY: 13.4 cm in length , cortex 1.6 cm Cysts: 2 separate anechoic structures in the interpolar region measure 4 x 3.8 x 3.9 cm and 2.3 x 1.3 x 1.8 cm. Solid masses: None Stones: None Hydronephrosis: Cystic lesions as above, which obscure the renal pelvis. Echogenicity: Normal renal cortical echogenicity. Bladder: Could not be assessed secondary to large hernia over the expected region of the bladder. CONCLUSION: Large bilateral cystic lesions, one of which on the right contains internal calcification. Findings may reflect peripelvic cysts, though hydronephrosis could have a similar appearance. CT urogram would be of benefit for further evaluation. No cortical thinning. Dictated by: Blayne Yañez M.D. on 09/16/2018 at 10:03 Electronically approved by: Blayne Yañez M.D. on 09/16/2018 at 10:03
[2018-09-16] MEDS: BENZONATATE 100 MG CAP PO SCH ×3 (10:00→20:35)
[2018-09-16] MEDS: CARVEDILOL 12.5 MG TAB PO SCH ×2 (10:00→17:18)
[2018-09-16] MEDS: POTASSIUM CHLORIDE 20 MEQ TAB CR PO SCH ×2 (10:00→17:18)
[2018-09-16] MEDS: FUROSEMIDE INJ 10 MG/ML 4 ML VIAL IV SCH (10:00)
[2018-09-16] MEDS: AMIODARONE HCL 200 MG TAB PO SCH (10:00)
[2018-09-16] MEDS: LORATADINE 10 MG TAB PO SCH (10:00)
[2018-09-16] MEDS: DOCUSATE SODIUM 100 MG CAP PO SCH ×2 (10:00→17:18)
--- NOTE | 2018-09-16 10:30 | NUR ---
Received call from Tony with [employer] stating that pt's insurance was inactive. CM spoke to pt at bedside who stated her deals with the insurance and would like for CM to call her . CM called Blayne Hi who stated that there was a mistake on HR's part at his company and they took him off the insurance. Mr. Hi said he has been on the phone with insurance and HR to get his insurance reinstated.
[2018-09-16] MEDS: CALCITONIN SALMON 400 IU/2ML VIAL SC SCH ×2 (12:49→20:35)
--- NOTE | 2018-09-16 16:05 | NUR ---
Received call from Mr. Hi stating that his insurance has been reinstated. notified Tony with [employer]. He will have his office check again and have oxygen tanks delivered.
--- NOTE | 2018-09-16 16:45 | NUR ---
Received call from Deonna at [facility]. Stated they are able to accept pt and she is covered 100%. CM will update with dc date.
--- NOTE | 2018-09-16 17:00 | NUR ---
Tony will deliver oxygen tanks to pt's room [facility].
[2018-09-16] MEDS: APIXABAN 5 MG TABLET PO SCH (17:18)
--- NOTE | 2018-09-16 18:33 | NUR ---
sitting on recliner , son at bedside, call light within reach. No s/s of acute distress noted. Report to be given to oncoming nurse.
[2018-09-16] MEDS: SIMVASTATIN 40 MG TAB PO SCH (20:35)
[2018-09-16] MEDS: MONTELUKAST SODIUM 10 MG TAB PO SCH (20:35)
[2018-09-17 01:09] VITALS: BP 100/56
[2018-09-17] MEDS: ALBUTEROL SULF 0.083% NEB SOLN 3 ML NEB NEB SCH ×2 (03:00→06:55)
[2018-09-17 05:08] LABS: ALBUMIN 2.5 g/dL (3.5-5.0); ALBUMIN/GLOBULIN RATIO 0.7 (0.8-2.0); CALCIUM 10.4 mg/dL (8.4-10.2); CREATININE, SERUM 1.6 mg/dL (0.57-1.11)
[2018-09-17 05:19] LABS: MAGNESIUM 1.7 MG/DL (1.3-2.1)
[2018-09-17] MEDS: CALCITONIN SALMON 400 IU/2ML VIAL SC SCH (05:31)
[2018-09-17] MEDS: GUAIFENESIN/DEXTROMETHORPHAN LIQD 5 ML UDC NG SCH (05:31)
[2018-09-17 06:34] VITALS: BP 113/60
[2018-09-17] MEDS ORDERED: Apixaban PO (06:50)
[2018-09-17] MEDS ORDERED: COREG12.5 MG PO (06:50)
[2018-09-17] MEDS ORDERED: TESSALON PERLE100 MG PO (06:50)
[2018-09-17] MEDS ORDERED: Calcitonin,Salmon,Synthetic SC (06:50)
[2018-09-17] MEDS ORDERED: AMIODARONE HCL200 MG PO (06:50)
[2018-09-17] MEDS ORDERED: COLACE100 M1 PO (06:50)
[2018-09-17] MEDS ORDERED: LORATADINE10 MG PO (06:51)
[2018-09-17] MEDS ORDERED: FUROSEMIDE40 MG PO (06:51)
[2018-09-17] MEDS ORDERED: Guaifenesin/Dextromethorphan NG (06:51)
[2018-09-17] MEDS ORDERED: SINGULAIR10 MG PO (06:51)
[2018-09-17] MEDS ORDERED: LIPITOR20 MG PO (06:51)
[2018-09-17] MEDS ORDERED: KLOR-CON M2020 MEQ PO (06:51)
[2018-09-17] MEDS: IPRATROPIUM BROMIDE 0.02% 2.5 ML NEB NEB SCH ×2 (06:56)
--- NOTE | 2018-09-17 07:00 | NUR ---
RCD PT AT BED PT IS ALERT AND ORIENTED ASSESSMENT DONE PT RESTING ON BED NO SIGNS OF ANY DISTRESS NOTED FAMILY AT BED SIDE BED LOW AND LOCKED CALL LIGHT IN REACH
--- NOTE | 2018-09-17 07:34 | NUR ---
Discharge Summary: Principal Dx: 1. Acute respiratory failure. 2. Severe sepsis. 3. Congestive heart failure, possibly diastolic. 4. Hypokalemia. 5. Hypercalcemia. 6. Urinary tract infection. 7. Right lung pneumonia. 8. Severe obesity, body mass index of 47.2. 9. Hypertension. 10. Hyperlipidemia. 11.Hypercalcemia and Hypokalemia 12.A.fib with RVR Secondary Dx: 1.Hypercalcemia cc and Hpi; refer to H&P Hospital course: 68-year-old woman with; 1. Acute respiratory failure. 2. Severe sepsis. 3. Congestive heart failure, possibly diastolic. 4. Hypokalemia. 5. Hypercalcemia. 6. Urinary tract infection. 7. Right lung pneumonia. 8. Severe obesity, body mass index of 47.2. 9. Hypertension. 10. Hyperlipidemia. PLAN 1. Continue BiPAP support. 2. Antibiotic with azithromycin and ceftriaxone. 3. Antitussive medication Tessalon and guaifenesin DM. 4. Loratadine. 5. Continue on antihypertensive medications. 6. Obtain hemoglobin A1c and lipid panel and screen for diabetes. 7. Low TSH with elevated T4 but normal T3. Patient may have mild hyperparathyroidism. Does not appear to be on Synthroid, but that is unclear at this time. 8. We will use heparin for DVT prophylaxis and Pepcid for GI prophylaxis. DISPOSITION: Monitor closely. 09/04 A.fib with RVR overnight; Possibly sleep apnea; HypoKalemia- repalce; Hypercalcemia- check intact PTH. Move to IMCU. cct>35mins. 09/05 Improving WBC; sputum positive with yeast; cont care; ambulate 09/06 SNF eval; check labs; 09/07 doing ok; BIPAP overnight; cont PT; d/c planning; 09/08 on BIPAP overnight; improving; check labs; d/c planning; 09/09 Hyperparathyroidism- inappropriately normal PTH with Hypercalcemia- start cinacalcet. D/C rushing; WBC continues to improve; d/c to SNF soon. 09/10 cont supportive care; 09/11 titrate BB up for uncontrolled HTN 09/12 start hydralazine; d/c nitro patch 09/13 worsening renal fn with increased lasix; reduce lasix dosing; 09/14 renal fn worse; stop lasix altogether. give some fluid. recheck renal fn this am. 09/15 renal fn beginning to improve after lasix stopped and some fluid given; f/u. 09/16 appreciate 's recommendations; cont care. f/u PCP 1 week, 1 week, 1 week, 2 weeks condition: improving d/c meds; see MAR d/c time >35mins. Salazar Sorenson MD, PhD.
[2018-09-17] MEDS: CARVEDILOL 12.5 MG TAB PO SCH (08:00)
[2018-09-17 08:07] VITALS: BP 113/60
[2018-09-17] MEDS ORDERED: FUROSEMIDE 40 MG TAB PO SCH (09:00)
[2018-09-17] MEDS: LORATADINE 10 MG TAB PO SCH (09:00)
[2018-09-17] MEDS: BENZONATATE 100 MG CAP PO SCH (09:00)
[2018-09-17] MEDS: APIXABAN 5 MG TABLET PO SCH (09:00)
[2018-09-17] MEDS: DOCUSATE SODIUM 100 MG CAP PO SCH (09:00)
[2018-09-17] MEDS ORDERED: POTASSIUM CHLORIDE 20 MEQ TAB CR PO SCH (09:00)
[2018-09-17] MEDS: AMIODARONE HCL 200 MG TAB PO SCH (09:00)
--- NOTE | 2018-09-17 09:18 | NUR ---
Spoke with Deonna from [facility]. Notified her that pt will be discharging today. She stated they can see pt tomorrow. [facility] [address] [place] [address] Home Oxygen with [address] [id number] Information was printed and given to pt.
[2018-09-17 09:21] VITALS: BP 118/57
--- NOTE | 2018-09-17 09:30 | NUR ---
hospice case manager arranged home health so discharge the pt
--- NOTE | 2018-09-17 10:39 | NUR ---
DC PICC LINE BY ORDER NO BLEEDING NOTED DRESSING APPLIED
[2018-09-17 13:27] VITALS: BP 142/73
--- NOTE | 2018-09-17 14:04 | NUR ---
PT WENT HOME IN SAFE CONDITION WITH HER
[2018-09-22 15:25] LABS: ALPHA 2 GLOBULIN URINE PEP 13.3 % (.)
--- NOTE | 2018-11-04 08:30 | NUR ---
Discharge summary Principal Dx: ASSESSMENT: A 68-year-old woman with; 1. Acute respiratory failure. 2. Severe sepsis. 3. Congestive heart failure, possibly diastolic. 4. Hypokalemia. 5. Hypercalcemia. 6. Urinary tract infection. 7. Right lung pneumonia. 8. Severe obesity, body mass index of 47.2. 9. Hypertension. 10. Hyperlipidemia. 11.A.fib with RVR Secondary Dx: 1.CHF cc and HPI; refer to H&P Hospital course: ASSESSMENT: A 68-year-old woman with; 1. Acute respiratory failure. 2. Severe sepsis. 3. Congestive heart failure, possibly diastolic. 4. Hypokalemia. 5. Hypercalcemia. 6. Urinary tract infection. 7. Right lung pneumonia. 8. Severe obesity, body mass index of 47.2. 9. Hypertension. 10. Hyperlipidemia. PLAN 1. Continue BiPAP support. 2. Antibiotic with azithromycin and ceftriaxone. 3. Antitussive medication Tessalon and guaifenesin DM. 4. Loratadine. 5. Continue on antihypertensive medications. 6. Obtain hemoglobin A1c and lipid panel and screen for diabetes. 7. Low TSH with elevated T4 but normal T3. Patient may have mild hyperparathyroidism. Does not appear to be on Synthroid, but that is unclear at this time. 8. We will use heparin for DVT prophylaxis and Pepcid for GI prophylaxis. DISPOSITION: Monitor closely. 09/04 A.fib with RVR overnight; Possibly sleep apnea; HypoKalemia- repalce; Hypercalcemia- check intact PTH. Move to IMCU. cct>35mins. 09/05 Improving WBC; sputum positive with yeast; cont care; ambulate 09/06 SNF eval; check labs; 09/07 doing ok; BIPAP overnight; cont PT; d/c planning; 09/08 on BIPAP overnight; improving; check labs; d/c planning; 09/09 Hyperparathyroidism- inappropriately normal PTH with Hypercalcemia- start cinacalcet. D/C rushing; WBC continues to improve; d/c to SNF soon. 09/10 cont supportive care; 09/11 titrate BB up for uncontrolled HTN 09/12 start hydralazine; d/c nitro patch 09/13 worsening renal fn with increased lasix; reduce lasix dosing; 09/14 renal fn worse; stop lasix altogether. give some fluid. recheck renal fn this am. 09/15 renal fn beginning to improve after lasix stopped and some fluid given; f/u. 09/16 appreciate 's recommendations; cont care. d/c home condition; stable f/u PCP 1 week and nephrology 2 weeksSalazar Sorenson MD, PhD. d.c >35mins d/c meds; see YOLIS Sorenson MD PhD
== END 2018-09-17 14:01 | DRG 871 ==
LOC: ER 18:48 → ERHOLD 22:34 → IMCU 09-03 14:12 → ICU 09-03 21:05 → IMCU 09-05 12:48 → MED/SURG2 09-09 14:34
PROVIDERS: ADMIT Internal Medicine; ATTEND Internal Medicine
PROC: 02HV33Z Insertion of Infusion Device into Superior Vena Cava, Percutaneous Approach (ICD-10-PCS; principal; 2018-09-04)
DX: A41.9 Sepsis, unspecified organism (principal); J18.9 Pneumonia, unspecified organism; I50.33 Acute on chronic diastolic (congestive) heart failure; J96.01 Acute respiratory failure with hypoxia; J96.02 Acute respiratory failure with hypercapnia; N17.9 Acute kidney failure, unspecified; E87.1 Hypo-osmolality and hyponatremia; I13.0 Hypertensive heart and chronic kidney disease with heart failure and stage 1 through stage 4 chronic kidney disease, or unspecified chronic kidney disease; E66.2 Morbid (severe) obesity with alveolar hypoventilation; N39.0 Urinary tract infection, site not specified; Z68.42 Body mass index [BMI] 45.0-49.9, adult; E46 Unspecified protein-calorie malnutrition; R65.20 Severe sepsis without septic shock; N18.3 Chronic kidney disease, stage 3 (moderate); E78.5 Hyperlipidemia, unspecified; E87.6 Hypokalemia; I48.0 Paroxysmal atrial fibrillation; R53.81 Other malaise; E21.3 Hyperparathyroidism, unspecified; R60.0 Localized edema; R26.89 Other abnormalities of gait and mobility
CPT/HCPCS: 36415; 36569; 36600; 51700; 71045; 71046; 76604; 76770; 77075; 80048; 80053; 80061; 81001; 82164; 82306; 82550; 82553; 82570; 82805; 82948; 83036; 83519; 83605; 83735; 83880; 83970; 84100; 84156; 84165; 84166; 84300; 84436; 84443; 84479; 84484; 85025; 85610; 85730; 86335; 87040; 87070; 87086; 87205; 93005; 93306; 94640; 94660; 96374; 97139; 99284; 99285; J0360; J0456; J0696; J1160; J1650; J1940; J2543; J7030; J7050; J7060

== ENCOUNTER → 2019-03-21 | Outpatient (CLI) | payer BC ==
[~2019-03-21] MED LIST changes: +AMIODARONE HCL200 MG PO; +Apixaban PO; +COLACE100 M1 PO; +COREG12.5 MG PO; +Calcitonin,Salmon,Synthetic SC; +FUROSEMIDE40 MG PO; +Guaifenesin/Dextromethorphan NG; +KLOR-CON M2020 MEQ PO; +LIPITOR20 MG PO; +LORATADINE10 MG PO; +SINGULAIR10 MG PO; +TESSALON PERLE100 MG PO
--- NOTE | 2019-03-21 12:47 | Diagnostic Imaging Report ---
EXAM: CHEST 2 VIEWS, PA and lateral DATE: 03/21/2019 Time stamp on exam: 12:09 PM INDICATION: Bronchitis COMPARISON: 09/05/2018 FINDINGS: LINES/TUBES: None LUNGS: No consolidations or edema. Pulmonary vascular congestion is no longer present. PLEURA: Pleural effusions have resolved. HEART AND MEDIASTINUM: Normal size and contour. BONES AND SOFT TISSUES: No acute findings. Diffuse bony demineralization and accentuation of the kyphotic curve. IMPRESSION: No acute thoracic abnormality. Signed by: Dr. Luan Hudson DO on 03/21/2019 12:44 PM
== END ==
LOC: RAD 12:03
PROVIDERS: ATTEND Family Medicine
DX: J40 Bronchitis, not specified as acute or chronic (principal)
CPT/HCPCS: 71046

== ENCOUNTER → 2021-09-17 | Outpatient (CLI) | payer MEDICARE | LOC: RAD 11:28 | PROVIDERS: ATTEND Internal Medicine Endocrinology, Diabetes & Metabolism | DX: R05.9 Cough, unspecified (principal) | CPT/HCPCS: 71046 ==

== ENCOUNTER → 2021-10-07 | Outpatient (CLI) | payer MEDICARE | LOC: RAD 10:34 | PROVIDERS: ATTEND Urology | DX: N20.0 Calculus of kidney (principal); R31.0 Gross hematuria | CPT/HCPCS: 74018 ==

== ENCOUNTER → 2021-10-23 | Day surgery (SDC) | payer MEDICARE ==
[2021-10-22 08:39] LABS: BASOPHILS % 0.5 % (0.0-1.0); EOSINOPHILS # (AUTO) 0.3 (0.0-0.4); EOSINOPHILS % 3.7 % (0.0-6.0); HEMATOCRIT 35.2 % (34.2-44.1); HEMOGLOBIN 10.7 g/dL (12.0-16.0); MEAN CORPUSCULAR HEMOGLOBIN 26.1 pg (28-32); MEAN CORPUSCULAR HGB CONC 30.4 g/dL (31-35); MEAN CORPUSCULAR VOLUME 85.9 fL (81-99); MONOCYTES # (AUTO) 0.6 (0.2-0.8); NEUTROPHILS # (AUTO) 4.8 (2.1-6.9); NEUTROPHILS % 61.5 % (38.7-80.0); PLATELET COUNT 258 x10e3/uL (140-360); RED CELL DISTRIBUTION WIDTH 13.6 % (11.7-14.4)
[2021-10-22 08:51] LABS: ANION GAP 12.1 mmol/L (8-16); CREATININE, SERUM 1.19 mg/dL (0.57-1.11); POTASSIUM 4.1 mmol/L (3.5-5.1)
[~2021-10-23] MED LIST changes: +ACETAMINOPHEN/CODEINE 300MG - 30MG TAB ONE; +AMLODIPINE BESY10 MG PO; +AMOXICILLIN500 MG PO; +BELLADONNA/OPIUM 30 MG SUPP RC ONE; +CEFTRIAXONE 1 GM VIAL ONE; +DEXAMETHASONE SOD PHOS INJ 4 MG/ML SDV ONE; +FENTANYL CITRATE/PF 100MCG/2 ML INJ ONE; +GENTAMICIN 80MG/NS 100 ML 200 ML IV ONE; +HYDRALAZINE HCL25 MG PO; +IOPAMIDOL 300MG/ML 50ML INFUS..BTL IV ONE; +LIDOCAINE HCL 2% LOCAL INJ 5 ML SDV VIAL INJ ONE; +ONDANSETRON HCL INJ 2MG/ML 2ML 2 MG/ML VIAL ONE; +POVIDONE IODINE 0.05% 0.05 % ML PO ONE; +PROPOFOL IV EMULSION 10 MG/ML 20 ML VIAL ONE; +SENSIPAR30 MG PO; +SEVOFLURANE INHAL SOLN 250 ML PEN BTL ONE; +SODIUM CHLORIDE 0.9% 50ML 100 ML ONE
[2021-10-23 10:40] VITALS: BP 152/75
== END | disposition home or self-care (01) ==
LOC: OR 06:08
PROVIDERS: ATTEND Urology
DX: N20.0 Calculus of kidney (principal); N13.30 Unspecified hydronephrosis; N39.0 Urinary tract infection, site not specified; N32.89 Other specified disorders of bladder; N81.10 Cystocele, unspecified; N95.2 Postmenopausal atrophic vaginitis; I12.9 Hypertensive chronic kidney disease with stage 1 through stage 4 chronic kidney disease, or unspecified chronic kidney disease; N18.9 Chronic kidney disease, unspecified; E78.5 Hyperlipidemia, unspecified; E66.9 Obesity, unspecified; Z01.812 Encounter for preprocedural laboratory examination; Z20.822 Contact with and (suspected) exposure to COVID-19; Z79.82 Long term (current) use of aspirin; Z79.899 Other long term (current) drug therapy; Z68.34 Body mass index [BMI] 34.0-34.9, adult; Z86.73 Personal history of transient ischemic attack (TIA), and cerebral infarction without residual deficits; Z84.1 Family history of disorders of kidney and ureter
CPT/HCPCS: 36415; 50590; 52332; 80048; 83970; 84550; 85025; 87086; C1758; C1769; C2617; J0696; J1100; J1580; J2001; J2405; J2704; J3010; Q9967; U0002

== ENCOUNTER → 2022-05-16 | Outpatient (CLI) | payer MEDICARE ==
[~2022-05-16] MED LIST changes: -ACETAMINOPHEN/CODEINE 300MG - 30MG TAB ONE; +ASPIRIN81 MG PO; +ATORVASTATIN CA20 MG PO; -BELLADONNA/OPIUM 30 MG SUPP RC ONE; -CEFTRIAXONE 1 GM VIAL ONE; -DEXAMETHASONE SOD PHOS INJ 4 MG/ML SDV ONE; -FENTANYL CITRATE/PF 100MCG/2 ML INJ ONE; -GENTAMICIN 80MG/NS 100 ML 200 ML IV ONE; -IOPAMIDOL 300MG/ML 50ML INFUS..BTL IV ONE; -LIDOCAINE HCL 2% LOCAL INJ 5 ML SDV VIAL INJ ONE; -ONDANSETRON HCL INJ 2MG/ML 2ML 2 MG/ML VIAL ONE; -POVIDONE IODINE 0.05% 0.05 % ML PO ONE; -PROPOFOL IV EMULSION 10 MG/ML 20 ML VIAL ONE; -SEVOFLURANE INHAL SOLN 250 ML PEN BTL ONE; -SODIUM CHLORIDE 0.9% 50ML 100 ML ONE; +[UNRECOGNIZED DRUG - OTHER]
== END ==
LOC: RAD 14:04
PROVIDERS: ATTEND Urology
DX: N20.0 Calculus of kidney (principal); N13.30 Unspecified hydronephrosis; T19.1XXA Foreign body in bladder, initial encounter
CPT/HCPCS: 74018

== ENCOUNTER → 2022-06-18 | Day surgery (SDC) | payer MEDICARE ==
[2022-05-22 11:36] LABS: BASOPHILS % 0.4 % (0.0-1.0); EOSINOPHILS # (AUTO) 0.5 (0.0-0.4); EOSINOPHILS % 6.7 % (0.0-6.0); HEMOGLOBIN 10.2 g/dL (12.0-16.0); LYMPHOCYTES # (AUTO) 2.5 (1.0-3.2); LYMPHOCYTES % 32.7 % (18.0-39.1); MEAN CORPUSCULAR HEMOGLOBIN 26.4 pg (28-32); MEAN CORPUSCULAR VOLUME 88.1 fL (81-99); MONOCYTES # (AUTO) 0.4 (0.2-0.8); MONOCYTES % 5.5 % (4.4-11.3); NEUTROPHILS # (AUTO) 4.1 (2.1-6.9); NEUTROPHILS % 54.3 % (38.7-80.0); PLATELET COUNT 388 x10e3/uL (140-360); RED BLOOD COUNT 3.86 x10e6/uL (3.6-5.1); RED CELL DISTRIBUTION WIDTH 15.3 % (11.7-14.4)
[2022-05-22 11:58] LABS: ANION GAP 16.4 mmol/L (8-16); CALCIUM 7.3 mg/dL (8.4-10.2); CREATININE, SERUM 1.28 mg/dL (0.57-1.11); POTASSIUM 4.4 mmol/L (3.5-5.1)
[~2022-06-18] MED LIST changes: +B&O 60MG R/S 60 MG SUPP PR ONE; +DEXAMETHASONE SOD PHOS INJ 4 MG/ML SDV ONE; +EPHEDRINE SULFATE INJ 50 MG/ML VIAL ONE; +FENTANYL CITRATE/PF 100MCG/2 ML INJ ONE; +IOPAMIDOL 610MG/1ML 300 MG/ML VIAL IV ONE; +LIDOCAINE HCL 2% LOCAL INJ 5 ML SDV VIAL INJ ONE; +ONDANSETRON HCL INJ 2MG/ML 2ML 2 MG/ML VIAL ONE; +PIPERACILLIN/TAZOBACTAM 3.375 GM VIAL ONE; +POVIDONE IODINE 0.05% 0.05 % ML PO ONE; +PROMETHAZINE HCL (IM) 25 MG/ML VIAL IM ONE; +PROPOFOL IV EMULSION 10 MG/ML 20 ML VIAL ONE; +SEVOFLURANE INHAL SOLN 250 ML PEN BTL ONE
[2022-06-18 09:45] VITALS: BP 120/84
== END | disposition home or self-care (01) ==
LOC: OR 05:38
PROVIDERS: ATTEND Urology
DX: N20.0 Calculus of kidney (principal); Z46.6 Encounter for fitting and adjustment of urinary device; N28.89 Other specified disorders of kidney and ureter; N13.30 Unspecified hydronephrosis; Z43.6 Encounter for attention to other artificial openings of urinary tract; N81.10 Cystocele, unspecified; N95.2 Postmenopausal atrophic vaginitis; N39.0 Urinary tract infection, site not specified; Z01.810 Encounter for preprocedural cardiovascular examination; Z01.812 Encounter for preprocedural laboratory examination; Z01.818 Encounter for other preprocedural examination; Z20.822 Contact with and (suspected) exposure to COVID-19; Z79.82 Long term (current) use of aspirin; Z79.899 Other long term (current) drug therapy
CPT/HCPCS: 0223U; 36415; 50389; 50590; 52332; 71046; 74018; 80048; 84550; 85025; 87086; 87186; 88300; 93005; C1758; C1769; C1874; C2617; J1100; J2001; J2405; J2543; J2550; J2704; J3010; Q9967

== ENCOUNTER → 2022-07-30 | Day surgery (SDC) | payer MEDICARE ==
[2022-07-29 09:34] LABS: BASOPHILS # (AUTO) 0.1 (0.0-0.1); BASOPHILS % 0.5 % (0.0-1.0); EOSINOPHILS # (AUTO) 0.4 (0.0-0.4); EOSINOPHILS % 4.6 % (0.0-6.0); HEMATOCRIT 30.8 % (34.2-44.1); HEMOGLOBIN 9.1 g/dL (12.0-16.0); LYMPHOCYTES # (AUTO) 2.2 (1.0-3.2); LYMPHOCYTES % 23.7 % (18.0-39.1); MEAN CORPUSCULAR HEMOGLOBIN 25.4 pg (28-32); MEAN CORPUSCULAR HGB CONC 29.5 g/dL (31-35); MONOCYTES # (AUTO) 0.6 (0.2-0.8); MONOCYTES % 6.6 % (4.4-11.3); NEUTROPHILS # (AUTO) 5.9 (2.1-6.9); NEUTROPHILS % 64.3 % (38.7-80.0); PLATELET COUNT 441 x10e3/uL (140-360); RED BLOOD COUNT 3.58 x10e6/uL (3.6-5.1); RED CELL DISTRIBUTION WIDTH 14.3 % (11.7-14.4)
[2022-07-29 09:51] LABS: ANION GAP 14.7 mmol/L (8-16); CALCIUM 8.4 mg/dL (8.4-10.2); CREATININE, SERUM 1.43 mg/dL (0.57-1.11); POTASSIUM 3.7 mmol/L (3.5-5.1)
[~2022-07-30] MED LIST changes: -B&O 60MG R/S 60 MG SUPP PR ONE; +CEFTRIAXONE 1 GM VIAL ONE; -DEXAMETHASONE SOD PHOS INJ 4 MG/ML SDV ONE; -EPHEDRINE SULFATE INJ 50 MG/ML VIAL ONE; +HYDRALAZINE HCL 20 MG/ML VIAL ONE; -IOPAMIDOL 610MG/1ML 300 MG/ML VIAL IV ONE; +LEVOTHYROXINE50 MCG PO; -LIDOCAINE HCL 2% LOCAL INJ 5 ML SDV VIAL INJ ONE; +METOPROLOL TART50 MG PO; -PIPERACILLIN/TAZOBACTAM 3.375 GM VIAL ONE; -POVIDONE IODINE 0.05% 0.05 % ML PO ONE; -PROMETHAZINE HCL (IM) 25 MG/ML VIAL IM ONE; -PROPOFOL IV EMULSION 10 MG/ML 20 ML VIAL ONE; -SEVOFLURANE INHAL SOLN 250 ML PEN BTL ONE
[2022-07-30 13:45] VITALS: BP 145/81
== END ==
LOC: OR 07:34
PROVIDERS: ATTEND Urology
DX: N20.0 Calculus of kidney (principal); Z96.0 Presence of urogenital implants; G47.33 Obstructive sleep apnea (adult) (pediatric); I13.0 Hypertensive heart and chronic kidney disease with heart failure and stage 1 through stage 4 chronic kidney disease, or unspecified chronic kidney disease; N18.9 Chronic kidney disease, unspecified; I50.9 Heart failure, unspecified; J45.909 Unspecified asthma, uncomplicated; Z01.812 Encounter for preprocedural laboratory examination; Z01.818 Encounter for other preprocedural examination; Z99.81 Dependence on supplemental oxygen; Z79.82 Long term (current) use of aspirin; Z79.899 Other long term (current) drug therapy; Z86.73 Personal history of transient ischemic attack (TIA), and cerebral infarction without residual deficits
CPT/HCPCS: 36415; 50590; 74018; 80048; 84550; 85025; J0360; J0696; J2405; J3010

== ENCOUNTER → 2022-08-23 | Day surgery (SDC) | payer MEDICARE ==
[2022-08-22 09:11] LABS: BASOPHILS % 0.5 % (0.0-1.0); EOSINOPHILS # (AUTO) 0.5 (0.0-0.4); EOSINOPHILS % 5.3 % (0.0-6.0); HEMATOCRIT 33.4 % (34.2-44.1); HEMOGLOBIN 9.7 g/dL (12.0-16.0); LYMPHOCYTES # (AUTO) 1.8 (1.0-3.2); LYMPHOCYTES % 20.8 % (18.0-39.1); MEAN CORPUSCULAR HEMOGLOBIN 25.4 pg (28-32); MEAN CORPUSCULAR VOLUME 87.4 fL (81-99); MONOCYTES # (AUTO) 0.7 (0.2-0.8); MONOCYTES % 7.5 % (4.4-11.3); NEUTROPHILS # (AUTO) 5.7 (2.1-6.9); NEUTROPHILS % 65.7 % (38.7-80.0); PLATELET COUNT 407 x10e3/uL (140-360); RED BLOOD COUNT 3.82 x10e6/uL (3.6-5.1); RED CELL DISTRIBUTION WIDTH 14.9 % (11.7-14.4)
[2022-08-22 09:32] LABS: CALCIUM 8.8 mg/dL (8.4-10.2); CREATININE, SERUM 1.42 mg/dL (0.57-1.11)
[~2022-08-23] MED LIST changes: -CEFTRIAXONE 1 GM VIAL ONE; -FENTANYL CITRATE/PF 100MCG/2 ML INJ ONE; +FLUCONAZOLE 200 MG/100 ML IV ONE; -HYDRALAZINE HCL 20 MG/ML VIAL ONE; +IOPAMIDOL 300MG/ML 50ML INFUS..BTL IV ONE; +LIDOCAINE HCL 2% LOCAL INJ 5 ML SDV VIAL INJ ONE; +POVIDONE IODINE 0.05% 0.05 % ML PO ONE; +PROPOFOL IV EMULSION 10 MG/ML 20 ML VIAL ONE; +SEVOFLURANE INHAL SOLN 250 ML PEN BTL ONE
[2022-08-23] MEDS: PIPERACILLIN/TAZOBACTAM 3.375 GM VIAL ONE (11:14)
[2022-08-23] MEDS: GENTAMICIN 80MG/NS 100 ML 200 ML IV ONE (11:16)
[2022-08-23] MEDS: FENTANYL CITRATE/PF 100MCG/2 ML INJ ONE (13:36)
[2022-08-23] MEDS: ONDANSETRON HCL INJ 2MG/ML 2ML 2 MG/ML VIAL ONE (13:48)
[2022-08-23] MEDS: METOCLOPRAMIDE HCL 10 MG/2ML VIAL ONE (14:00)
[2022-08-23 14:11] VITALS: BP 184/95
== END | disposition home or self-care (01) ==
LOC: OR 08:09
PROVIDERS: ATTEND Urology
DX: N20.0 Calculus of kidney (principal); N20.1 Calculus of ureter; N13.1 Hydronephrosis with ureteral stricture, not elsewhere classified; Z46.6 Encounter for fitting and adjustment of urinary device; N81.10 Cystocele, unspecified; N95.2 Postmenopausal atrophic vaginitis; N30.20 Other chronic cystitis without hematuria; I10 Essential (primary) hypertension; M19.90 Unspecified osteoarthritis, unspecified site; Z01.810 Encounter for preprocedural cardiovascular examination; Z01.812 Encounter for preprocedural laboratory examination; Z01.818 Encounter for other preprocedural examination; Z99.81 Dependence on supplemental oxygen; Z79.82 Long term (current) use of aspirin; Z79.899 Other long term (current) drug therapy; Z86.73 Personal history of transient ischemic attack (TIA), and cerebral infarction without residual deficits
CPT/HCPCS: 36415; 52332; 52346; 52356; 74018; 74420; 80048; 84550; 85025; 87086; 87186; 88300; 93005; C1766; C2617 ×2; J1450; J1580; J2001; J2405; J2543; J2704; J2765; J3010; Q9967

== ENCOUNTER → 2022-10-10 | Day surgery (SDC) | payer MEDICARE ==
[2022-10-07 15:03] LABS: BASOPHILS # (AUTO) 0.1 (0.0-0.1); BASOPHILS % 0.5 % (0.0-1.0); EOSINOPHILS # (AUTO) 0.4 (0.0-0.4); EOSINOPHILS % 3.7 % (0.0-6.0); HEMATOCRIT 37.1 % (34.2-44.1); HEMOGLOBIN 10.8 g/dL (12.0-16.0); LYMPHOCYTES # (AUTO) 2.2 (1.0-3.2); LYMPHOCYTES % 21.7 % (18.0-39.1); MEAN CORPUSCULAR HEMOGLOBIN 25.7 pg (28-32); MEAN CORPUSCULAR HGB CONC 29.1 g/dL (31-35); MEAN CORPUSCULAR VOLUME 88.1 fL (81-99); MONOCYTES # (AUTO) 0.7 (0.2-0.8); MONOCYTES % 7.3 % (4.4-11.3); NEUTROPHILS # (AUTO) 6.7 (2.1-6.9); NEUTROPHILS % 66.4 % (38.7-80.0); PLATELET COUNT 448 x10e3/uL (140-360); RED BLOOD COUNT 4.21 x10e6/uL (3.6-5.1); RED CELL DISTRIBUTION WIDTH 16.1 % (11.7-14.4)
[2022-10-07 15:20] LABS: ANION GAP 15.5 mmol/L (8-16); CALCIUM 8.4 mg/dL (8.4-10.2); CREATININE, SERUM 1.65 mg/dL (0.57-1.11); POTASSIUM 3.5 mmol/L (3.5-5.1)
[~2022-10-10] MED LIST changes: +ACETAMINOPHEN 1000 MG/100 ML 100 ML IV ONE; +EPHEDRINE SULFATE INJ 50 MG/ML VIAL ONE; +FENTANYL CITRATE/PF 100MCG/2 ML INJ ONE; -FLUCONAZOLE 200 MG/100 ML IV ONE; +GENTAMICIN 80MG/NS 100 ML 200 ML IV ONE; -IOPAMIDOL 300MG/ML 50ML INFUS..BTL IV ONE; +IOPAMIDOL 610MG/1ML 300 MG/ML VIAL IV ONE
[2022-10-10 11:53] VITALS: BP 178/96
== END | disposition home or self-care (01) ==
LOC: OR 07:00
PROVIDERS: ATTEND Urology
DX: N20.0 Calculus of kidney (principal); Z46.6 Encounter for fitting and adjustment of urinary device; N81.10 Cystocele, unspecified; N81.6 Rectocele; N95.2 Postmenopausal atrophic vaginitis; N28.89 Other specified disorders of kidney and ureter; G47.33 Obstructive sleep apnea (adult) (pediatric); I10 Essential (primary) hypertension; E78.5 Hyperlipidemia, unspecified; I25.10 Atherosclerotic heart disease of native coronary artery without angina pectoris; M06.9 Rheumatoid arthritis, unspecified; M19.90 Unspecified osteoarthritis, unspecified site; E03.9 Hypothyroidism, unspecified; Z01.812 Encounter for preprocedural laboratory examination; Z01.818 Encounter for other preprocedural examination; Z99.81 Dependence on supplemental oxygen; Z79.82 Long term (current) use of aspirin; Z79.899 Other long term (current) drug therapy; Z68.35 Body mass index [BMI] 35.0-35.9, adult; Z85.42 Personal history of malignant neoplasm of other parts of uterus; Z90.710 Acquired absence of both cervix and uterus; Z86.73 Personal history of transient ischemic attack (TIA), and cerebral infarction without residual deficits
CPT/HCPCS: 36415; 52352; 74018; 74420; 80048; 84550; 85025; 87086; 87186; 88300; C1766; C1769; J0131; J1580; J2001; J2405; J2704; J3010; Q9967

== ENCOUNTER → 2024-02-17 | Outpatient (REF) | payer MEDICARE ==
[~2024-02-17] MED LIST changes: -ACETAMINOPHEN 1000 MG/100 ML 100 ML IV ONE; -EPHEDRINE SULFATE INJ 50 MG/ML VIAL ONE; -FENTANYL CITRATE/PF 100MCG/2 ML INJ ONE; -GENTAMICIN 80MG/NS 100 ML 200 ML IV ONE; -IOPAMIDOL 610MG/1ML 300 MG/ML VIAL IV ONE; -LIDOCAINE HCL 2% LOCAL INJ 5 ML SDV VIAL INJ ONE; -ONDANSETRON HCL INJ 2MG/ML 2ML 2 MG/ML VIAL ONE; -POVIDONE IODINE 0.05% 0.05 % ML PO ONE; -PROPOFOL IV EMULSION 10 MG/ML 20 ML VIAL ONE; -SEVOFLURANE INHAL SOLN 250 ML PEN BTL ONE
== END ==
LOC: RAD 15:01
PROVIDERS: ATTEND Internal Medicine Endocrinology, Diabetes & Metabolism
DX: J18.9 Pneumonia, unspecified organism (principal)
CPT/HCPCS: 71046

== ENCOUNTER → 2024-08-24 | Outpatient (REF) | payer MEDICARE | LOC: RAD 08-23 10:43 | PROVIDERS: ATTEND Internal Medicine Endocrinology, Diabetes & Metabolism | DX: K59.00 Constipation, unspecified (principal) | CPT/HCPCS: 74021 ==